=== PATIENT | female | born 1940 | race Caucasian/White ===

== ENCOUNTER 2016-02-19 09:51 | Inpatient (IN) | payer OTHER ==
[~2016-02-19] VITALS: Ht 160 cm; Wt 45.8 kg
[~2016-02-19 09:51] MED LIST: ASPIRIN81 M4 PO; ATORVASTATIN CA10 M1 PO; BENTYL10 M1 PO; CALCIUM600 M2 PO; CENTRUM SILVER1 EAC3 PO; CIPRO500 M1 PO; FLAGYL500 MG PO; VITAMIN D2000 UNI1 PO; ZESTRIL40 M1 PO
--- NOTE | 2016-02-19 10:10 | ED GI/GU/ABDOMINAL COMPLAINT ---
History of Present Illness General Chief Complaint: Abdominal Pain/Flank Pain Stated Complaint: ABDOM PAIN Source: patient, family, old records Exam Limitations: no limitations Vital Signs & Intake/Output Vital Signs & Intake/Output Vital Signs Date Time Temp Pulse Resp B/P Pulse O2 O2 Flow FiO2 Ox Delivery Rate 02/19 0844 130/74 02/19 0710 97.6 73 18 138/74 91 Room Air 02/19 0317 162/82 02/19 0031 98.1 73 18 172/80 97 Nasal 2.0L Cannula 02/19 0000 Nasal 1.0L Cannula 02/18 2044 98.3 81 18 140/60 90 02/18 1706 100.5 90 16 186/79 92 Room Air 02/18 1642 98.7 80 18 158/69 92 02/18 1423 97.3 88 157/71 96 02/18 1237 107 18 130/60 ED Intake and Output 02/19 0000 02/18 1200 Intake Total 850 1400 Output Total 350 Balance 500 1400 Intake, IV 300 1400 Intake, Oral 0 Intake, Other 550 Output, 350 Gastric Drainage Patient 101 lb 99 lb 15.99 oz Weight Allergies Coded Allergies: No Known Allergies (11/18/15) Reconcile Medications Aspirin (Aspirin*) 81 MG TAB.CHEW 1 TAB PO DAILY HEART HEALTH (Reported) Atorvastatin Calcium 10 MG TABLET 1 TAB PO DAILY CHOLESTEROL (Reported) Calcium Carbonate (Calcium) 600 MG TABLET 1 TAB PO DAILY SUPPLEMENT (Reported ) Cholecalciferol (Vitamin D3) (Vitamin D) 2,000 UNIT TABLET 1 TAB PO DAILY SUPPLEMENT (Reported) Dicyclomine Hydrochloride (Bentyl) 10 MG CAPSULE 1 CAP PO TID pain Lisinopril (Zestril) 40 MG TABLET 1 TAB PO DAILY HEART (Reported) Multivit-Min/FA/Lycopen/Lutein (Centrum Silver Tablet) 1 EACH TABLET 1 TAB PO DAILY SUPPLEMENT (Reported) Triage Note: PT C/O ABDOMINAL PAIN WITH N/V X 5 DAYS. PT SEEN HERE ON 02/[address] SCAN WAS DONE. PT STATES UNABLE TO KEEP ANY FOOD DOWN BUT HAS KEPT WATER DOWN. STATES VOMITED THIS AM WAS ALL BILE Triage Nurses Notes Reviewed? yes ? N Is pt currently ? No Onset: Gradual Duration: week(s): (1-2) Timing: recent history Quality/Severity: fullness, severe Severity Numbers: 10 Location: generalized abdomen Radiation: no radiation Activities at Onset: none Prior Abdominal Problems: none No Modifying Factors: none Associated Symptoms: abdominal pain, nausea/vomiting, DISTENTION HPI: 75 year old female who presents to the ER who presents to the ER with progressive abdominal pain and distention for the past 1 week. She was seen here on February 13 and diagnosed with a small bowel obstruction but was abble to eat and having normal bowel movement at the time. In the last 3 days she has not had a bowel movement. She has also been unable to eat for the past 2 days. She admits to feeling weak. She reports passing a small amount of gas this morning. She vomited a moderate amount yesterday evening. She was due to see GI as an outpatient but cannot get an appointment until March 10. Past History Travel History Traveled to [place] past 21 day No Medical History Any Pertinent Medical History? see below for history Neurological: NONE EENT: NONE Cardiovascular: hypertension, hyperlipidemia Respiratory: NONE Gastrointestinal: diverticulitis Hepatic: NONE Renal: NONE Musculoskeletal: NONE Psychiatric: NONE Endocrine: NONE Blood Disorders: NONE Cancer(s): NONE Surgical History Surgical History: appendectomy, cholecystectomy, hysterectomy Psychosocial History What is your primary language Cypriot Tobacco Use: Quit >30 days ago ETOH Use: denies use Illicit Drug Use: denies illicit drug use Family History Hx Contributory? No Review of Systems Review of Systems Constitutional: Reports: weakness. Denies: chills, fever, malaise. EENTM: Reports: no symptoms. Respiratory: Denies: cough, short of breath, sputum production. Cardiovascular: Denies: chest pain, palpitations. GI: Reports: abdominal pain, bloating, constipation, nausea, vomiting. Genitourinary: Reports: no symptoms. Musculoskeletal: Reports: no symptoms. Skin: Reports: no symptoms. Neurological/Psychological: Reports: anxiety. Hematologic/Endocrine: Denies: bruising, bleeding, polyuria, polydipsia. Immunologic/Allergic: Denies: splenectomy. All Other Systems: Reviewed and Negative Physical Exam Physical Exam General Appearance: alert, awake, anxious, mild distress, thin Head: atraumatic, normal appearance Eyes: Bilateral: normal appearance, PERRL, EOMI. Ears, Nose, Throat, Mouth: hearing grossly normal, moist mucous membrane Neck: normal inspection, supple, full range of motion Respiratory: normal breath sounds, chest non-tender, no respiratory distress Cardiovascular: regular rate/rhythm Peripheral Pulses: 2+ radial (R), 2+ radial (L) Gastrointestinal: distended, tympanic Back: normal inspection, normal range of motion Extremities: normal range of motion Neurologic/Psych: no motor/sensory deficits, awake, alert, oriented x 3 Skin: intact, normal color, warm/dry Core Measures ACS in differential dx? No Severe Sepsis Present: No Septic Shock Present: No Progress Differential Diagnosis: diverticulitis, ischemic bowel, perforated viscous, SBO, ILEUS, MASS Plan of Care: Orders Procedure Date/time Status MAGNESIUM 02/20 599 Active CBC WITHOUT DIFFERENTIAL 02/20 599 Active BASIC ELECTROLYTES PLUS BUN&CR 02/20 599 Active CBC WITHOUT DIFFERENTIAL 02/19 599 Complete BASIC ELECTROLYTES PLUS BUN&CR 02/19 599 Complete MISSING MEDICATION FORM 02/19 UNK Active Nothing by Mouth 02/18 D Active MISSING MEDICATION FORM 02/18 204 Active Teach/Educate 02/18 1728 Active Nutritional Intake, Monitor 02/18 1728 Active Isolation 02/18 1728 Active Patient Care Conference 02/18 1728 Active TRC EVALUATION (GEN) 02/18 1255 Active Pathway - chart 02/18 1255 Active Patient Data 02/18 1255 Active Code Status 02/18 1255 Active Admit to inpatient 02/18 1221 Active Vital Signs 02/18 1221 Active Code Status 02/18 1221 Complete NGT 02/18 1132 Active VTE Mechanical Prophylaxis 02/18 UNK Active Vital Signs 02/18 UNK Complete Intake & Output 02/18 UNK Active Activity/Ambulation 02/18 UNK Active Current Medications Sig/Cesar Start time Last Medication Dose Stop Time Status Admin Ondansetron HCl 4 MG Q6P PRN 02/18 1300 AC (Zofran) Phenol 2 SPRAY Q2P PRN 02/18 1300 AC (Chloraseptic (Phenaseptic) [place]) Laboratory Tests 02/20/16 0635: Anion Gap 12, Estimated GFR > 60, BUN/Creatinine Ratio 22.0, CBC w Diff NO MAN DIFF REQ, RBC 3.90 L, MCV 92.6, MCH 31.3 H, RDW 14.3, MPV 7.5, Gran % 78.1 H, Lymphocytes % 11.9 L, Monocytes % 8.7, Eosinophils % 0.9, Basophils % 0.4, Absolute Granulocytes 10.9 H, Absolute Lymphocytes 1.7, Absolute Monocytes 1.2 H, Absolute Eosinophils 0.1, Absolute Basophils 0.1, PUBS MCHC 33.8 02/19/16 1421: Lactic Acid 1.0 LABS, URINALYSIS, CT SCAN ORDERED. IV NS ORDERED. CT CONSISTENT WITH SBO. D/W DR REYEZ. SURGICAL PA PAGED. IV MORPHINE ORDERED FOR PAIN. NGT PLACED. 500 CC BILIOUS MATERAL DRAINED. PATIENT ADMITTED TO THE SURGICAL SERVICE. (NICOLETTE LEE,SOCORRO) Diagnostic Imaging: Viewed by Me: Radiology Read, CT Scan. Discussed w/RAD: Radiology Read, CT Scan. Radiology Impression: EXAM TYPE: CAT - CT ABD & PELVIS W IV CONTRAST EXAMINATION : CT ABDOMEN AND PELVIS WITH CONTRAST CLINICAL INFORMATION: Worsening abdominal distention and vomiting. Evaluate for obstruction. COMPARISON: 02/14/2016 TECHNIQUE: Multidetector volumetric imaging was performed of the abdomen and pelvis before and after the IV administration of 95 mL of Optiray 320 intravenous contrast. Sagittal and coronal reformatted images were obtained on the technologist's workstation. DLP: 250 mGy-cm. FINDINGS: LUNG BASES: The visualized lung bases are unremarkable. LIVER, GALLBLADDER, AND BILIARY TREE: The liver is normal in size, shape, and attenuation. No focal hepatic lesion or biliary ductal dilatation is present. The gallbladder is unremarkable with no evidence of radiopaque gallstones, gallbladder wall thickening, or obvious pericholecystic inflammatory changes. PANCREAS: Unremarkable. SPLEEN: Unremarkable. ADRENAL GLANDS: Unremarkable. KIDNEYS AND URETERS: The kidneys are normal in size, shape, and attenuation. No hydronephrosis, hydroureter, or calculi seen. No perinephric stranding. BLADDER: Unremarkable. GASTROINTESTINAL TRACT: The stomach is distended. There is increased fluid-filled dilatation of the small bowel, diffusely throughout the abdomen. This is significantly increased from the previous study. A transition point is noted in the right lower quadrant in the area of image 49/86 axial and image 70/109 sagittal. There is scattered stool seen in the colon which is otherwise fairly decompressed. There is colonic diverticulosis without evidence of diverticulitis. No free air or free fluid. ABDOMINAL WALL: No significant hernia is appreciated. LYMPH NODES : Normal. VASCULAR: Extensive atherosclerotic calcifications. Circumaortic left renal vein. PELVIC VISCERA: The uterus is not seen. No adnexal mass. OSSEOUS STRUCTURES: No acute or suspicious osseous abnormalities. Mild degenerative changes of the spine. IMPRESSION: Progressive fluid-filled dilatation of the small bowel when compared to the prior study, consistent with worsening small bowel obstruction. A transition point is seen in the right lower quadrant as detailed above. CXR Impression: EXAM TYPE: RAD - XRY-PORTABLE CHEST XRAY EXAMINATION: XR PORTABLE CHEST CLINICAL INFORMATION: NG tube placement. COMPARISON: CT of abdomen and pelvis from 02/19/2016. CXR from 02/19/2009. TECHNIQUE: Portable view of the chest was obtained. FINDINGS: Lungs are chronically hyperexpanded. Cardiac silhouette is normal in size. The NG tube courses below the diaphragm and its tip is in the proximal third of the stomach. The side-port of the tube is at the level of the esophagogastric junction. Dilated small bowel is seen within the upper abdomen. No pneumoperitoneum. IMPRESSION: 1. The tip of the NG tube is within the proximal third of the stomach. 2. Small bowel obstruction without pneumoperitoneum. DICTATED BY: CHUNG ROLLINS MD Initial ED EKG: NSR, RBBB Departure Departure Time of Disposition: 1221 Disposition: STILL A PATIENT Condition: Stable Clinical Impression Primary Impression: SBO (small bowel obstruction) Secondary Impressions: Hyponatremia Referrals: LEONIDAS MARTIN,MARIE [place] (PCP/Family) Departure Forms: Customer Survey General Discharge Information Admission Note Spoke With: DEREJE LEE,SOCO N. Documentation of Exam: Documentation of any treatments & extenuating circumstances including Concerns Regarding Discharge (functional status, medication knowledge or non-compliance, living conditions, etc.) that warrant an admission rather than observation: [NGT , NPO, IV FLUIDS, ABDOMINAL EXAMINATIONS, PAIN CONTROL, MONITOR ELECTROLYTES, POSSIBLE SURGICAL INTERVENTION]
--- NOTE | 2016-02-19 10:21 | NUR ---
LAV,SST,BLUE,SYED,AND PINK TOP SENT AT THIS TIME.
[2016-02-19 10:27] LABS: ABSOLUTE BASOPHIL COUNT 0.1 /CUMM (0.0-0.2); ABSOLUTE EOSINOPHIL COUNT 0 /CUMM (0.0-0.7); ABSOLUTE LYMPH COUNT 1.5 /CUMM (1.2-3.4); ABSOLUTE MONOCYTE COUNT 0.8 /CUMM (0.10-0.60); BASOPHIL % 0.4 % (0.0-2.0); EOSINOPHIL % 0.1 % (0-5); HEMATOCRIT 40.7 % (37-47); MEAN CORPUSCULAR HGB 30.7 PG (27.0-31.0); MEAN CORPUSCULAR HGB CONC 33.6 G/DL (33.0-37.0); MEAN CORPUSCULAR VOLUME 91.4 FL (81.0-99.0); MEAN PLATELET VOLUME 6.9 FL (7.4-10.4); PLATELET COUNT 523 /CUMM (130-400); RBC DISTRIBUTION WIDTH 14.1 % (11.5-14.5); RED BLOOD CELL CT 4.46 /CUMM (4.20-5.40); WHITE BLOOD CELL COUNT 18.4 /CUMM (4.8-10.8)
--- NOTE | 2016-02-19 10:37 | NUR ---
PT C/O ABDOMINAL PAIN WITH N/V X 5 DAYS. PT SEEN HERE ON 02/[address] SCAN WAS DONE. PT STATES UNABLE TO KEEP ANY FOOD DOWN BUT HAS KEPT WATER DOWN. STATES VOMITED THIS AM WAS ALL BILE
--- NOTE | 2016-02-19 10:38 | NUR ---
EXAMINED BY DR. WILL. LABS DRAWN AND IV STARTED.
[2016-02-19 10:45] LABS: PT 13.1 SEC (9.4-12.5); PTT 29 SEC (25-37)
--- NOTE | 2016-02-19 11:00 | NUR ---
TO CT SCAN.
--- NOTE | 2016-02-19 11:30 | NUR ---
RETURNED FROM CT SCAN.
--- NOTE | 2016-02-19 11:43 | CT SCAN REPORT ---
EXAMINATION: CT ABDOMEN AND PELVIS WITH CONTRAST CLINICAL INFORMATION: Worsening abdominal distention and vomiting. Evaluate for obstruction. COMPARISON: 02/14/2016 TECHNIQUE: Multidetector volumetric imaging was performed of the abdomen and pelvis before and after the IV administration of 95 mL of Optiray 320 intravenous contrast. Sagittal and coronal reformatted images were obtained on the technologist's workstation. DLP: 250 mGy-cm. FINDINGS: LUNG BASES: The visualized lung bases are unremarkable. LIVER, GALLBLADDER, AND BILIARY TREE: The liver is normal in size, shape, and attenuation. No focal hepatic lesion or biliary ductal dilatation is present. The gallbladder is unremarkable with no evidence of radiopaque gallstones, gallbladder wall thickening, or obvious pericholecystic inflammatory changes. PANCREAS: Unremarkable. SPLEEN: Unremarkable. ADRENAL GLANDS: Unremarkable. KIDNEYS AND URETERS: The kidneys are normal in size, shape, and attenuation. No hydronephrosis, hydroureter, or calculi seen. No perinephric stranding. BLADDER: Unremarkable. GASTROINTESTINAL TRACT: The stomach is distended. There is increased fluid-filled dilatation of the small bowel, diffusely throughout the abdomen. This is significantly increased from the previous study. A transition point is noted in the right lower quadrant in the area of image 49/86 axial and image 70/109 sagittal. There is scattered stool seen in the colon which is otherwise fairly decompressed. There is colonic diverticulosis without evidence of diverticulitis. No free air or free fluid. ABDOMINAL WALL: No significant hernia is appreciated. LYMPH NODES: Normal. VASCULAR: Extensive atherosclerotic calcifications. Circumaortic left renal vein. PELVIC VISCERA: The uterus is not seen. No adnexal mass. OSSEOUS STRUCTURES: No acute or suspicious osseous abnormalities. Mild degenerative changes of the spine. IMPRESSION: Progressive fluid-filled dilatation of the small bowel when compared to the prior study, consistent with worsening small bowel obstruction. A transition point is seen in the right lower quadrant as detailed above.
--- NOTE | 2016-02-19 12:26 | History & Physical Pre-Op ---
General Information and HPI History of Present Illness: cc: Abdominal pain HPI: She is back to the ER 5 days later with abdominal pain this time it's a little more persistent not really focal in general periumbilical doesn't radiate no bleeding per rectum last time it was more the left lower quadrant this time she feels a lot more nauseous and bloated but hasn't actually vomited discomfort is relieved with IV analgesics and it's not worse on movement, no fevers or sweats she isn't passing gas last time was yesterday last bowel movement was yesterday. The PFSH and ROS were reviewed and have not changed significantly since that ENMT done here in the ER 5 days ago on February 13, unless stated, updates and corrections to the history include she has not had a cholecystectomy, there is a family history of stroke no GI cancer Allergies/Medications Allergies: Coded Allergies: No Known Allergies (11/18/15) Home Med list Aspirin (Aspirin*) 81 MG TAB.CHEW 1 TAB PO DAILY HEART HEALTH (Reported) Atorvastatin Calcium 10 MG TABLET 1 TAB PO DAILY CHOLESTEROL (Reported) Calcium Carbonate (Calcium) 600 MG TABLET 1 TAB PO DAILY SUPPLEMENT (Reported ) Cholecalciferol (Vitamin D3) (Vitamin D) 2,000 UNIT TABLET 1 TAB PO DAILY SUPPLEMENT (Reported) Dicyclomine Hydrochloride (Bentyl) 10 MG CAPSULE 1 CAP PO TID pain Lisinopril (Zestril) 40 MG TABLET 1 TAB PO DAILY HEART (Reported) Multivit-Min/FA/Lycopen/Lutein (Centrum Silver Tablet) 1 EACH TABLET 1 TAB PO DAILY SUPPLEMENT (Reported) Past History Medical History Neurological: NONE EENT: NONE Cardiovascular: hypertension, hyperlipidemia Respiratory: NONE Gastrointestinal: diverticulitis Hepatic: NONE Renal: NONE Musculoskeletal: NONE Psychiatric: NONE Endocrine: NONE Blood Disorders: NONE Cancer(s): NONE Surgical History Pertinent Surgical History: appendectomy, cholecystectomy, hysterectomy Past Family/Social History Psychosocial History ETOH Use: denies use Illicit Drug Use: denies illicit drug use Review of Systems Review of Systems: Done 5 days ago no changes unless stated above Exam & Diagnostic Data Last 24 Hrs of Vital Signs/I&O I reviewed Vital Signs Date Time Temp Pulse Resp B/P Pulse O2 O2 Flow FiO2 Ox Delivery Rate 02/18 0957 98.9 97 20 117/73 96 Room Air I reviewed Intake & Output 02/18 1600 02/18 0800 02/18 0000 Intake Total Output Total Balance Patient 99 lb 15.99 oz Weight Physical Exam: Constitutional: pleasant, no acute distress, conversant Eyes: sclera anicteric ENMT: ears and nose atraumatic, moist mucous membranes, good dentition, no lip lesions Neck: Supple, trachea is midline, no cervical or supraclavicular adenopathy and no palpable thyromegaly Cardiovascular: S1, S2, no murmurs, no peripheral edema Respiratory: clear to auscultation with normal respiratory effort and no intercostal retractions GI: abdomen soft, still nontender, but distinctly distended, no palpable hepatosplenomegaly Extremities / lymphatics: symmetrically warm, free range of motion no peripheral edema, no cervical, supraclavicular, axillary, or inguinal adenopathy Musculoskeletal: gait and station not evaluated, no digital cyanosis, good muscle strength and tone no atrophy, motor grossly 5 out of 5 throughout Skin: no jaundice, no rashes warm, nondiaphoretic, no areas of erythema or induration Psychiatric: mood and affect are appropriate and alert and oriented to person place and time Last 24 Hrs of Labs/Ye: I reviewed Laboratory Tests 02/19/16 1017: Anion Gap 15, Estimated GFR > 60, BUN/Creatinine Ratio 30.0 H, Glucose 122 H, Lactic Acid 1.4, Calcium 9.9, Total Bilirubin 0.7, AST 27, ALT 30, Alkaline Phosphatase 67, Troponin I < 0.01, Total Protein 7.3, Albumin 4.1, Globulin 3.2, Albumin/Globulin Ratio 1.3, Lipase 67, PT 13.1 H, INR 1.25 H, APTT 29, CBC w Diff MAN DIFF ORDERED, RBC 4.46, MCV 91.4, MCH 30.7, RDW 14.1, MPV 6.9 L, Gran % 87.0 H, Lymphocytes % 8.2 L, Monocytes % 4.3, Eosinophils % 0.1, Basophils % 0.4, Absolute Granulocytes 16.0 H, Absolute Lymphocytes 1.5, Absolute Monocytes 0.8 H, Absolute Eosinophils 0, Absolute Basophils 0.1, Platelet Estimate INCREASED, Normocytic RBCs VERIFIED, Normochromic RBCs VERIFIED, PUBS MCHC 33.[address] scan of the abdomen on PACS myself from today in the ER and compared it to the one 5 days ago on the . In the interval the degree of small bowel dilatation has increased, no obvious masses down in the pelvis. Assessment/Plan Assessment/Plan: Impression is small bowel obstruction presumably from adhesions from prior surgeries, often exacerbated by an unusual meal high in fiber or chewy food, or even straining, both of which she denies again. I went over her films with the radiologist including those from years ago to try to make sense Y she's had leukocytosis and thrombocytosis and abdominal pain since October, now more obviously a small bowel obstruction, on the CT scans it's not clear there is no definite obvious mass in the low pelvis or free fluid there are some nonspecific prominent mesenteric nodes in the central mesentery, she was due for colonoscopy this month until this episode of pain brought her to the ER again. In the meantime will treat in routine nonoperative fashion with bowel rest, NG tube for decompression, maintenance IV fluids and for the GI losses, monitor uo, electrolytes, vital signs, serial exams, labs, abdominal x-rays. Presently there are no peritoneal signs, if situation plateaus or worsens, especially if abdominal pain worsens in next 6-12 hours, might need urgent surgical intervention in the interest of bowel viability, but as I explained, most of the time it is not needed. As Ranked By This Provider Problem List: 1. SBO (small bowel obstruction) 2. Leukocytosis 3. Thrombocytosis 4. Abdominal pain
--- NOTE | 2016-02-19 12:38 | NUR ---
NG TUBE INSERTION ATTEMPTED BY THIS NURSE, UNSUCCESSFUL. # 16 NG TUBE INSERTED BY DAR. WILL. DRAINING BLOODY AND GREEN STOMACH CONTENTS.
--- NOTE | 2016-02-19 12:47 | NUR ---
PORTABLE ABDOMINAL XRAY DONE. SINUS RHYTHM ON MONITOR.
--- NOTE | 2016-02-19 12:48 | Admission Core Measures ---
Admission Lab Results I reviewed the following labs: Laboratory Tests 02/18 1017 Chemistry Sodium (137 - 145 mmol/L) 130 L Potassium (3.5 - 5.1 mmol/L) 3.9 Chloride (98 - 107 mmol/L) 85 L Carbon Dioxide (22 - 30 mmol/L) 29 Anion Gap (5 - 16) 15 BUN (7 - 17 mg/dL) 18 H Creatinine (0.5 - 1.0 mg/dL) 0.6 Estimated GFR (>60 ml/min) > 60 BUN/Creatinine Ratio (7 - 25 %) 30.0 H Glucose (65 - 99 mg/dL) 122 H Lactic Acid (0.7 - 2.1 mmol/L) 1.4 Calcium (8.4 - 10.2 mg/dL) 9.9 Total Bilirubin (0.2 - 1.3 mg/dL) 0.7 AST (14 - 36 U/L) 27 ALT (9 - 52 U/L) 30 Alkaline Phosphatase (<127 U/L) 67 Troponin I (< 0.11 ng/ml) < 0.01 Total Protein (6.3 - 8.2 g/dL) 7.3 Albumin (3.5 - 5.0 g/dL) 4.1 Globulin (1.9 - 4.2 gm/dL) 3.2 Albumin/Globulin Ratio (1.1 - 2.2 %) 1.3 Lipase (23 - 300 U/L) 67 Coagulation PT (9.4 - 12.5 SEC) 13.1 H INR (0.90 - 1.19) 1.25 H APTT (25 - 37 SEC) 29 Hematology CBC w Diff MAN DIFF ORDERED WBC (4.8 - 10.8 /CUMM) 18.4 H RBC (4.20 - 5.40 /CUMM) 4.46 Hgb (12.0 - 16.0 G/DL) 13.7 Hct (37 - 47 %) 40.7 MCV (81.0 - 99.0 FL) 91.4 MCH (27.0 - 31.0 PG) 30.7 RDW (11.5 - 14.5 %) 14.1 Plt Count (130 - 400 /CUMM) 523 H MPV (7.4 - 10.4 FL) 6.9 L Gran % (42.2 - 75.2 %) 87.0 H Lymphocytes % (20.5 - 51.1 %) 8.2 L Monocytes % (1.7 - 9.3 %) 4.3 Eosinophils % (0 - 5 %) 0.1 Basophils % (0.0 - 2.0 %) 0.4 Absolute Granulocytes (1.4 - 6.5 /CUMM) 16.0 H Absolute Lymphocytes (1.2 - 3.4 /CUMM) 1.5 Absolute Monocytes (0.10 - 0.60 /CUMM) 0.8 H Absolute Eosinophils (0.0 - 0.7 /CUMM) 0 Absolute Basophils (0.0 - 0.2 /CUMM) 0.1 Platelet Estimate (ADEQUATE) INCREASED Normocytic RBCs VERIFIED Normochromic RBCs VERIFIED PUBS MCHC (33.0 - 37.0 G/DL) 33.6 Acute Coronary Syndrome Inclusion Criteria ACS Diagnosis No Inpatient Core Measures LDL Reminder: If No, please order W/I first 24hr of stay Congestive Heart Failure Inclusion Criteria CHF Diagnosis No Cerebrovascular accident Inclusion Criteria CVA/TIA Diagnosis No Inpatient Core Measures Bedside Swallow Eval Reminder: If BSE failed, place ST order Antithrombotic Reminder: Order Antithrombotic Medication by end of day 2 Antithrombotic Reminder: Document Reason Antithrombotic Not ordered by end of day 2 AFIB/Flutter Reminder: If Present, add to problem list AFIB/Flutter Reminder: Order Anticoag Medication for pts with AFIB/Flutter Atherosclerosis Reminder: If Present, add to problem list LDL Reminder: If No, please order W/I first 24hr of stay PT Order Reminder: If No, please order Venous thromboembolism Inpatient Core Measures VTE Risk Factors: Age > 40 VTE Prophylaxis Ordered Inpt [facility] VTE prophylaxis d/t No contraindications No VTE Pharm Prophylaxis d/t No contraindications Inclusion Criteria - Per Current guidelines, there needs to be overlap - treatment for the first 5 days of Warfarin therapy. - Parenteral Anticoagulation (IV or SC) needs to be - given along with Warfarin therapy. VTE Diagnosis No VTE Type NONE VTE Confirmed by (Test) NONE Problem List As ranked by this Provider includes Assessment & Plan 1. SBO (small bowel obstruction) HOME MEDS Home Med List Aspirin (Aspirin*) 81 MG TAB.CHEW 1 TAB PO DAILY HEART HEALTH (Reported) Atorvastatin Calcium 10 MG TABLET 1 TAB PO DAILY CHOLESTEROL (Reported) Calcium Carbonate (Calcium) 600 MG TABLET 1 TAB PO DAILY SUPPLEMENT (Reported ) Cholecalciferol (Vitamin D3) (Vitamin D) 2,000 UNIT TABLET 1 TAB PO DAILY SUPPLEMENT (Reported) Dicyclomine Hydrochloride (Bentyl) 10 MG CAPSULE 1 CAP PO TID pain Lisinopril (Zestril) 40 MG TABLET 1 TAB PO DAILY HEART (Reported) Multivit-Min/FA/Lycopen/Lutein (Centrum Silver Tablet) 1 EACH TABLET 1 TAB PO DAILY SUPPLEMENT (Reported)
--- NOTE | 2016-02-19 13:00 | NUR ---
CONTACT PT'S SISTER FOR ANY QUESTIONS/NEEDS - BRIAN CELL = [phone] HOME = [phone] BRIAN'S RICH = [phone] (CELL)
--- NOTE | 2016-02-19 13:16 | RADIOLOGY REPORT ---
EXAMINATION: XR PORTABLE CHEST CLINICAL INFORMATION: NG tube placement. COMPARISON: CT of abdomen and pelvis from 02/19/2016. CXR from 02/19/2009. TECHNIQUE: Portable view of the chest was obtained. FINDINGS: Lungs are chronically hyperexpanded. Cardiac silhouette is normal in size. The NG tube courses below the diaphragm and its tip is in the proximal third of the stomach. The side-port of the tube is at the level of the esophagogastric junction. Dilated small bowel is seen within the upper abdomen. No pneumoperitoneum. IMPRESSION: 1. The tip of the NG tube is within the proximal third of the stomach. 2. Small bowel obstruction without pneumoperitoneum.
--- NOTE | 2016-02-19 14:15 | NUR ---
RESTING, STATES SHE IS HAVING ABDOMINAL CRAMPING, PAIN MEDS OFFERED, REFUSES AT THIS TIME.
--- NOTE | 2016-02-19 14:23 | NUR ---
LACTIC SENT AT THIS TIME.
--- NOTE | 2016-02-19 14:56 | NUR ---
MEDICATED FOR PAIN.
[2016-02-19 16:42] VITALS: BP 158/69
--- NOTE | 2016-02-19 16:59 | NUR ---
PT MOVED TO ROOM # 18 AND CONNECTED NGT TO LOW INTERMITTENT SUCTION. PT DENIES NAUSEA OR ABDOMINAL PAIN. ALL V.S.S.
--- NOTE | 2016-02-19 19:13 | NUR ---
PT ASSIGNED BED [id number]
--- NOTE | 2016-02-19 20:01 | NUR ---
PT'S HEALTH CARE PROXY AND POA IS: BRIAN SAVAGE; CELL # [phone]
[2016-02-19 20:44] VITALS: BP 140/60
--- NOTE | 2016-02-20 00:08 | NUR ---
NURSE NOTE: PT BLOOD PRESSURE 172/80, SURGICAL PA MATHEW MADE AWARE. WILL CONTINUTE TO MONITOR AT THIS TIME. PT IS SLEEPING COMFORTABLY AT THIS TIME.
[2016-02-20 00:31] VITALS: BP 172/80
--- NOTE | 2016-02-20 01:02 | NUR ---
NURSE NOTE: (LATE ENTRY) PT ARRIVED TO FLOOR AT 2030, ESCORTED MY POA (FRIEND) AND TRANSPORT. PT AAOX3, IVF, NGT. PT DENIES PAIN AT THIS TIME. PT VITALS ARE STABLE. ASSESSMENT COMPLETED.
[2016-02-20 03:17] VITALS: BP 162/82
[2016-02-20 07:10] VITALS: BP 138/74
[2016-02-20 08:07] LABS: ABSOLUTE BASOPHIL COUNT 0.1 /CUMM (0.0-0.2); ABSOLUTE EOSINOPHIL COUNT 0.1 /CUMM (0.0-0.7); ABSOLUTE GRANULOCYTE CT 10.9 /CUMM (1.4-6.5); ABSOLUTE LYMPH COUNT 1.7 /CUMM (1.2-3.4); ABSOLUTE MONOCYTE COUNT 1.2 /CUMM (0.10-0.60); BASOPHIL % 0.4 % (0.0-2.0); EOSINOPHIL % 0.9 % (0-5); GRANULOCYTE % 78.1 % (42.2-75.2); HEMATOCRIT 36.1 % (37-47); MEAN CORPUSCULAR HGB 31.3 PG (27.0-31.0); MEAN CORPUSCULAR HGB CONC 33.8 G/DL (33.0-37.0); MEAN CORPUSCULAR VOLUME 92.6 FL (81.0-99.0); MEAN PLATELET VOLUME 7.5 FL (7.4-10.4); PLATELET COUNT 418 /CUMM (130-400); RBC DISTRIBUTION WIDTH 14.3 % (11.5-14.5)
--- NOTE | 2016-02-20 10:12 | PN- General Surgery ---
Subjective Subjective: f-up SBO Back from x-ray she says she feels better no significant abdominal pain, she is passing gas no nausea no vomiting ambulating. Objective Vital Signs and I&Os I reviewed Vital Signs Date Time Temp Pulse Resp B/P Pulse O2 O2 Flow FiO2 Ox Delivery Rate 02/19 0844 130/74 02/19 0710 97.6 73 18 138/74 91 Room Air 02/19 0317 162/82 02/19 0031 98.1 73 18 172/80 97 Nasal 2.0L Cannula 02/19 0000 Nasal 1.0L Cannula 02/18 2044 98.3 81 18 140/60 90 02/18 1706 100.5 90 16 186/79 92 Room Air 02/18 1642 98.7 80 18 158/69 92 02/18 1423 97.3 88 157/71 96 02/18 1237 107 18 130/60 I reviewed Intake & Output 02/19 1600 02/19 0800 02/19 0000 02/18 1600 02/18 0800 02/18 0000 Intake Total 144 463 9217 Output Total 580 350 Balance 20 850 1050 Intake, IV 795 845 3499 Intake, Oral 0 0 Intake, Other 550 Output, 80 350 Gastric Drainage Output, Urine 500 Patient 101 lb 99 lb 15.99 oz Weight Physical Exam: Constitutional: no acute distress no pain Eyes: sclera anicteric ENMT: moist mucous membranes Cardiovascular: S1-S2 no murmurs no peripheral edema Respiratory: clear to auscultation with normal respiratory effort and no intercostal retractions GI: abdomen soft nontender at all, but distinctly distended and firm still Extremities / lymphatics: free range of motion no peripheral edema Skin: no jaundice no rashes warm, nondiaphoretic Psychiatric: mood and affect are appropriate and alert and oriented to person place and time Current Medications: I reviewed Current Medications Sig/Cesar Start time Last Medication Dose Route Stop Time Status Admin Heparin Sodium 5,000 UNIT Q8 02/18 1400 AC 02/19 (Porcine) SC 0615 Lisinopril 40 MG DAILY 02/19 1000 AC 02/19 PO 0844 Morphine Sulfate 0 .STK-MED ONE 02/18 2018 DC .ROUTE Morphine Sulfate 0 .STK-MED ONE 02/18 1450 DC .ROUTE Morphine Sulfate 2 MG Q3P PRN 02/18 1300 AC 02/18 IV 2020 Morphine Sulfate 2 MG ONCE ONE 02/18 1145 DC 02/18 IV 02/18 1146 1138 Morphine Sulfate 0 .STK-MED ONE 02/18 1136 DC .ROUTE Ondansetron HCl 4 MG Q6P PRN 02/18 1300 AC IV Pantoprazole Sodium 0 .STK-MED ONE 02/18 1329 DC IV Pantoprazole Sodium 40 MG DAILY 02/18 1253 AC 02/19 IV 0844 Phenol 2 SPRAY Q2P PRN 02/18 1300 AC EXT Potassium Chloride 10 MEQ Q1H 02/19 1015 AC IV 02/19 1116 Potassium Chloride 20 MEQ Q13H 02/18 2115 AC 02/19 Dextrose/Sodium 1,000 ML IV 0843 Chloride Potassium Chloride 20 MEQ .[id number] 02/18 1300 DC 02/18 Dextrose/Sodium 1,000 ML IV 1415 Chloride Sodium Chloride 1,000 ML ONCE ONE 02/18 1345 DC 02/18 IV 02/18 2144 1602 Sodium Chloride 1,000 ML BOLUS ONE 02/18 1015 DC 02/18 IV 02/18 1114 1037 Results Last 48 Hours of Labs: I reviewed Laboratory Tests 02/19 02/18 0635 1421 Chemistry Sodium (137 - 145 mmol/L) 134 L Potassium (3.5 - 5.1 mmol/L) 3.5 Chloride (98 - 107 mmol/L) 95 L Carbon Dioxide (22 - 30 mmol/L) 27 Anion Gap (5 - 16) 12 BUN (7 - 17 mg/dL) 11 Creatinine (0.5 - 1.0 mg/dL) 0.5 Estimated GFR (>60 ml/min) > 60 BUN/Creatinine Ratio (7 - 25 %) 22.0 Lactic Acid (0.7 - 2.1 mmol/L) 1.0 Hematology CBC w Diff NO MAN DIFF REQ WBC (4.8 - 10.8 /CUMM) 14.0 H RBC (4.20 - 5.40 /CUMM) 3.90 L Hgb (12.0 - 16.0 G/DL) 12.2 Hct (37 - 47 %) 36.1 L MCV (81.0 - 99.0 FL) 92.6 MCH (27.0 - 31.0 PG) 31.3 H RDW (11.5 - 14.5 %) 14.3 Plt Count (130 - 400 /CUMM) 418 H MPV (7.4 - 10.4 FL) 7.5 Gran % (42.2 - 75.2 %) 78.1 H Lymphocytes % (20.5 - 51.1 %) 11.9 L Monocytes % (1.7 - 9.3 %) 8.7 Eosinophils % (0 - 5 %) 0.9 Basophils % (0.0 - 2.0 %) 0.4 Absolute Granulocytes (1.4 - 6.5 /CUMM) 10.9 H Absolute Lymphocytes (1.2 - 3.4 /CUMM) 1.7 Absolute Monocytes (0.10 - 0.60 /CUMM) 1.2 H Absolute Eosinophils (0.0 - 0.7 /CUMM) 0.1 Absolute Basophils (0.0 - 0.2 /CUMM) 0.1 PUBS MCHC (33.0 - 37.0 G/DL) 33.8 02/18 1017 Chemistry Sodium (137 - 145 mmol/L) 130 L Potassium (3.5 - 5.1 mmol/L) 3.9 Chloride (98 - 107 mmol/L) 85 L Carbon Dioxide (22 - 30 mmol/L) 29 Anion Gap (5 - 16) 15 BUN (7 - 17 mg/dL) 18 H Creatinine (0.5 - 1.0 mg/dL) 0.6 Estimated GFR (>60 ml/min) > 60 BUN/Creatinine Ratio (7 - 25 %) 30.0 H Glucose (65 - 99 mg/dL) 122 H Lactic Acid (0.7 - 2.1 mmol/L) 1.4 Calcium (8.4 - 10.2 mg/dL) 9.9 Total Bilirubin (0.2 - 1.3 mg/dL) 0.7 AST (14 - 36 U/L) 27 ALT (9 - 52 U/L) 30 Alkaline Phosphatase (<127 U/L) 67 Troponin I (< 0.11 ng/ml) < 0.01 Total Protein (6.3 - 8.2 g/dL) 7.3 Albumin (3.5 - 5.0 g/dL) 4.1 Globulin (1.9 - 4.2 gm/dL) 3.2 Albumin/Globulin Ratio (1.1 - 2.2 %) 1.3 Lipase (23 - 300 U/L) 67 Coagulation PT (9.4 - 12.5 SEC) 13.1 H INR (0.90 - 1.19) 1.25 H APTT (25 - 37 SEC) 29 Hematology CBC w Diff MAN DIFF ORDERED WBC (4.8 - 10.8 /CUMM) 18.4 H RBC (4.20 - 5.40 /CUMM) 4.46 Hgb (12.0 - 16.0 G/DL) 13.7 Hct (37 - 47 %) 40.7 MCV (81.0 - 99.0 FL) 91.4 MCH (27.0 - 31.0 PG) 30.7 RDW (11.5 - 14.5 %) 14.1 Plt Count (130 - 400 /CUMM) 523 H MPV (7.4 - 10.4 FL) 6.9 L Gran % (42.2 - 75.2 %) 87.0 H Lymphocytes % (20.5 - 51.1 %) 8.2 L Monocytes % (1.7 - 9.3 %) 4.3 Eosinophils % (0 - 5 %) 0.1 Basophils % (0.0 - 2.0 %) 0.4 Absolute Granulocytes (1.4 - 6.5 /CUMM) 16.0 H Absolute Lymphocytes (1.2 - 3.4 /CUMM) 1.5 Absolute Monocytes (0.10 - 0.60 /CUMM) 0.8 H Absolute Eosinophils (0.0 - 0.7 /CUMM) 0 Absolute Basophils (0.0 - 0.2 /CUMM) 0.1 Platelet Estimate (ADEQUATE) INCREASED Normocytic RBCs VERIFIED Normochromic RBCs VERIFIED PUBS MCHC (33.0 - 37.0 G/DL) 33.6 I reviewed today's multiview on PACS myself compared to yesterday's corporation officer, there is a little more scattered gas in the colon but mostly it still distended small bowel Assessment/Plan Assessment/Plan Impression is small bowel obstruction I reviewed all of her films with the radiologist it's not clear what's causing it, we'll advance the NG tube little more hopefully we can decompress her, this usually works I explained to her but if she is not much better overnight then we will have to take her to the OR at this point for a laparotomy because of the distention and the problem is deep in the pelvis if she wasn't so distended perhaps could try a laparoscopy. Core Measures/Miscellaneous Venous Thromboembolism VTE Risk Factors: Acute medical illness VTE Contraindications: No Contraindications VTE Prophylaxis Ordered Inpt Mech & Pharm VTE Diagnosis: No VTE Type: NONE VTE Confirmed by (Test): NONE Beta Jonna Is Beta Jonna a Home Med? No Antibiotics Is Patient on Antibiotics? No
--- NOTE | 2016-02-20 10:15 | PN- General Surgery ---
Subjective Subjective: No acute events overnight. Pt reports improvement in her symptoms overall. she denies pain or nausea. Nasogastric tube remains in place with minimal bilious output. she states that she is passing flatus. No bowel movement as of yet. She is voiding well. Objective Vital Signs and I&Os Vital Signs Date Time Temp Pulse Resp B/P Pulse O2 O2 Flow FiO2 Ox Delivery Rate 02/19 0844 130/74 02/19 0710 97.6 73 18 138/74 91 Room Air 02/19 0317 162/82 02/19 0031 98.1 73 18 172/80 97 Nasal 2.0L Cannula 02/19 0000 Nasal 1.0L Cannula 02/18 2044 98.3 81 18 140/60 90 02/18 1706 100.5 90 16 186/79 92 Room Air 02/18 1642 98.7 80 18 158/69 92 02/18 1423 97.3 88 157/71 96 02/18 1237 107 18 130/60 Intake & Output 02/19 1600 02/19 0800 02/19 0000 02/18 1600 02/18 0800 02/18 0000 Intake Total 793 390 4180 Output Total 580 350 Balance 20 850 1050 Intake, IV 279 876 8162 Intake, Oral 0 0 Intake, Other 550 Output, 80 350 Gastric Drainage Output, Urine 500 Patient 101 lb 99 lb 15.99 oz Weight Physical Exam: Gen.: Patient is awake and alert. No acute distress. Cardiac: Regular Pulmonary: CTA bilaterally Abdomen: Soft, but still moderately distended. Nontender throughout. No BS appreciated on exam. NGT in place. Output 100/12 hrs. Results Last 48 Hours of Labs: Laboratory Tests 02/19 02/18 0635 1421 Chemistry Sodium (137 - 145 mmol/L) 134 L Potassium (3.5 - 5.1 mmol/L) 3.5 Chloride (98 - 107 mmol/L) 95 L Carbon Dioxide (22 - 30 mmol/L) 27 Anion Gap (5 - 16) 12 BUN (7 - 17 mg/dL) 11 Creatinine (0.5 - 1.0 mg/dL) 0.5 Estimated GFR (>60 ml/min) > 60 BUN/Creatinine Ratio (7 - 25 %) 22.0 Lactic Acid (0.7 - 2.1 mmol/L) 1.0 Hematology CBC w Diff NO MAN DIFF REQ WBC (4.8 - 10.8 /CUMM) 14.0 H RBC (4.20 - 5.40 /CUMM) 3.90 L Hgb (12.0 - 16.0 G/DL) 12.2 Hct (37 - 47 %) 36.1 L MCV (81.0 - 99.0 FL) 92.6 MCH (27.0 - 31.0 PG) 31.3 H RDW (11.5 - 14.5 %) 14.3 Plt Count (130 - 400 /CUMM) 418 H MPV (7.4 - 10.4 FL) 7.5 Gran % (42.2 - 75.2 %) 78.1 H Lymphocytes % (20.5 - 51.1 %) 11.9 L Monocytes % (1.7 - 9.3 %) 8.7 Eosinophils % (0 - 5 %) 0.9 Basophils % (0.0 - 2.0 %) 0.4 Absolute Granulocytes (1.4 - 6.5 /CUMM) 10.9 H Absolute Lymphocytes (1.2 - 3.4 /CUMM) 1.7 Absolute Monocytes (0.10 - 0.60 /CUMM) 1.2 H Absolute Eosinophils (0.0 - 0.7 /CUMM) 0.1 Absolute Basophils (0.0 - 0.2 /CUMM) 0.1 PUBS MCHC (33.0 - 37.0 G/DL) 33.8 / 1017 Chemistry Sodium (137 - 145 mmol/L) 130 L Potassium (3.5 - 5.1 mmol/L) 3.9 Chloride (98 - 107 mmol/L) 85 L Carbon Dioxide (22 - 30 mmol/L) 29 Anion Gap (5 - 16) 15 BUN (7 - 17 mg/dL) 18 H Creatinine (0.5 - 1.0 mg/dL) 0.6 Estimated GFR (>60 ml/min) > 60 BUN/Creatinine Ratio (7 - 25 %) 30.0 H Glucose (65 - 99 mg/dL) 122 H Lactic Acid (0.7 - 2.1 mmol/L) 1.4 Calcium (8.4 - 10.2 mg/dL) 9.9 Total Bilirubin (0.2 - 1.3 mg/dL) 0.7 AST (14 - 36 U/L) 27 ALT (9 - 52 U/L) 30 Alkaline Phosphatase (<127 U/L) 67 Troponin I (< 0.11 ng/ml) < 0.01 Total Protein (6.3 - 8.2 g/dL) 7.3 Albumin (3.5 - 5.0 g/dL) 4.1 Globulin (1.9 - 4.2 gm/dL) 3.2 Albumin/Globulin Ratio (1.1 - 2.2 %) 1.3 Lipase (23 - 300 U/L) 67 Coagulation PT (9.4 - 12.5 SEC) 13.1 H INR (0.90 - 1.19) 1.25 H APTT (25 - 37 SEC) 29 Hematology CBC w Diff MAN DIFF ORDERED WBC (4.8 - 10.8 /CUMM) 18.4 H RBC (4.20 - 5.40 /CUMM) 4.46 Hgb (12.0 - 16.0 G/DL) 13.7 Hct (37 - 47 %) 40.7 MCV (81.0 - 99.0 FL) 91.4 MCH (27.0 - 31.0 PG) 30.7 RDW (11.5 - 14.5 %) 14.1 Plt Count (130 - 400 /CUMM) 523 H MPV (7.4 - 10.4 FL) 6.9 L Gran % (42.2 - 75.2 %) 87.0 H Lymphocytes % (20.5 - 51.1 %) 8.2 L Monocytes % (1.7 - 9.3 %) 4.3 Eosinophils % (0 - 5 %) 0.1 Basophils % (0.0 - 2.0 %) 0.4 Absolute Granulocytes (1.4 - 6.5 /CUMM) 16.0 H Absolute Lymphocytes (1.2 - 3.4 /CUMM) 1.5 Absolute Monocytes (0.10 - 0.60 /CUMM) 0.8 H Absolute Eosinophils (0.0 - 0.7 /CUMM) 0 Absolute Basophils (0.0 - 0.2 /CUMM) 0.1 Platelet Estimate (ADEQUATE) INCREASED Normocytic RBCs VERIFIED Normochromic RBCs VERIFIED PUBS MCHC (33.0 - 37.0 G/DL) 33.6 Assessment/Plan Assessment/Plan Patient is a 75-year-old female with a history of hypertension, hyperlipidemia, and several abdominal surgeries, who is now postoperative day #2 with a recurrent small bowel obstruction. She is improving symptomatically with reports of flatus and no nausea or pain. Plan: -Continue nothing by mouth with NG tube decompression for now. There is no medina for removal given patient's recurrent symptoms. -Follow-up multiview x-ray, which is being done now. -Continue IV fluids with potassium. We will also replete potassium. -Leukocytosis is improving, but this is likely somewhat dilutional. Repeat labs in the morning. -Protonix for GI prophylaxis. -Subcutaneous heparin and Alps for DVT prophylaxis. -Will discuss with attending. Update as of 12pm: MV xray of the abdomen revealed persistent sbo. NGT was advanced 4cm to 59. Continue as above. Core Measures/Miscellaneous Venous Thromboembolism VTE Risk Factors: Acute medical illness, Age > 40 VTE Contraindications: No Contraindications VTE Prophylaxis Ordered Inpt Mech & Pharm VTE Diagnosis: No VTE Type: NONE VTE Confirmed by (Test): NONE Beta Jonna Is Beta Jonna a Home Med? No Antibiotics Is Patient on Antibiotics? No
--- NOTE | 2016-02-20 11:10 | RADIOLOGY REPORT ---
EXAMINATION: XR ABDOMEN MULTIPLE VIEWS CLINICAL INDICATION: Follow-up small bowel obstruction. COMPARISON: CT abdomen and pelvis from 02/19/2016 TECHNIQUE: Abdomen, 2 views FINDINGS: The tip of the enteric tube is in the proximal third of the stomach and the side-port of the tube is located at the level of the esophagogastric junction, unchanged compared to 02/19/2016. Again noted is extensive dilatation of small bowel with air-fluid levels, consistent with small bowel obstruction. The dilated small bowel measures up to approximately 4 cm diameter, which is similar compared to 02/19/2016. No pneumoperitoneum. There is excreted contrast material within the urinary bladder. IMPRESSION: 1. NG tube in stable position compared to 02/19/2016. 2. Persistent small bowel obstruction without pneumoperitoneum or other significant interval change compared to 02/19/2016.
--- NOTE | 2016-02-20 14:40 | NUR ---
POTASSIUM BOLUS STARTED. IV INFILTRATED. ICE GIVEN TO PATIENT ON THE LEFT ANTECUBITAL AREA WHERE THE IV WAS. K WAS RUNNING AT 30ML/HR, HOWEVER STILL MANAGED TO INFILTRATE THE VEIN. SURGICAL PA BOYD NOTIFIED. PER BOYD, THE PATIENT NEEDS TO POTASSIUM. RN ATTEMPTED NEW LINE, RUNNING K AT 30ML/HR WITH NS GOING IN AT THE SAME TIME. PATIENT SAYS SHE DOESN'T FEEL BURNING ANYMORE ON THE NEW SITE (RF). WILL CONT TO MONITOR.
[2016-02-20 15:54] VITALS: BP 160/76
--- NOTE | 2016-02-20 23:35 | NUR ---
NURSING NOTE: MST CALLED THIS NURSE INTO PATIENTS ROOM REPORTING HIGH BLOOD PRESSURE, THIS NURSE RETOOK BP, 180/88. ITNERN 136 NOTIFIED. NEW ORDER AMLODIPINE 5MG PO X1 NOW. WILL PASS ON IN REPORT AND HAVE RE-CHECK BP IN 1 HOUR.
[2016-02-21] VITALS (8 sets, daily range): BP systolic 145–200; BP diastolic 60–88
--- NOTE | 2016-02-21 01:17 | NUR ---
PT B/P 180/68, PAGED SURGICAL PA PER PA NO NEW ORDERS. WILL CONTINUE TO MONITOR PATIENT.
--- NOTE | 2016-02-21 04:00 | NUR ---
PT B/P 180/60.
--- NOTE | 2016-02-21 07:13 | PN- General Surgery ---
Subjective Subjective: The patient was seen this morning. She denies any abdominal pain and reports passing significant flatus but still has yet to have a bowel movement. She has no nausea and is eager to get her NG tube removed. Objective Vital Signs and I&Os Vital Signs Date Time Temp Pulse Resp B/P Pulse O2 O2 Flow FiO2 Ox Delivery Rate 02/20 0307 182/60 02/20 0229 190/60 02/20 0103 188/68 02/20 0011 98.0 87 20 180/88 92 Room Air 02/19 2325 180/88 02/19 1554 98.2 85 19 160/76 92 02/19 1305 Room Air Room Air 02/19 0844 130/74 Intake & Output 02/20 0000 02/19 1600 02/19 0802/19 0000 02/18 1600 Intake Total 525 0 305 856 8079 Output Total 1100 950 675 580 350 Balance -1100 -425 -675 20 850 1050 Intake, IV 525 944 347 7274 Intake, Oral 0 0 0 Intake, Other 550 Output, 250 75 80 350 Gastric Drainage Output, Urine 1100 700 600 500 Patient 101 lb 99 lb 15.99 oz Weight Physical Exam: Gen.: Alert and in obvious distress Skin: Warm and dry Abdomen: Softly distended, nontender, bowel sounds positive. Extremities: Bilateral lower extremities are warm without calf tenderness or significant edema Assessment/Plan Assessment/Plan Assessment: 75-year-old female with a small bowel obstruction currently being treated conservatively. Plan: Continue nothing by mouth and NG tube decompression Serial abdominal exams Follow-up morning laboratory studies IV hydration Out of bed ambulate GI and DVT prophylaxis Core Measures/Miscellaneous Venous Thromboembolism VTE Risk Factors: Acute medical illness VTE Contraindications: No Contraindications VTE Prophylaxis Ordered Inpt Mech & Pharm VTE Diagnosis: No VTE Type: NONE VTE Confirmed by (Test): NONE Beta Jonna Is Beta Jonna a Home Med? No Antibiotics Is Patient on Antibiotics? No
[2016-02-21 07:48] LABS: ABSOLUTE BASOPHIL COUNT 0.1 /CUMM (0.0-0.2); ABSOLUTE EOSINOPHIL COUNT 0.1 /CUMM (0.0-0.7); ABSOLUTE GRANULOCYTE CT 9.4 /CUMM (1.4-6.5); ABSOLUTE LYMPH COUNT 1.4 /CUMM (1.2-3.4); ABSOLUTE MONOCYTE COUNT 0.8 /CUMM (0.10-0.60); BASOPHIL % 1.1 % (0.0-2.0); EOSINOPHIL % 0.7 % (0-5); GRANULOCYTE % 79.6 % (42.2-75.2); HEMATOCRIT 33.4 % (37-47); MEAN CORPUSCULAR HGB 31.1 PG (27.0-31.0); MEAN CORPUSCULAR HGB CONC 33.9 G/DL (33.0-37.0); MEAN CORPUSCULAR VOLUME 91.6 FL (81.0-99.0); MEAN PLATELET VOLUME 7.3 FL (7.4-10.4); PLATELET COUNT 388 /CUMM (130-400); RBC DISTRIBUTION WIDTH 14.3 % (11.5-14.5); RED BLOOD CELL CT 3.65 /CUMM (4.20-5.40); WHITE BLOOD CELL COUNT 11.8 /CUMM (4.8-10.8)
--- NOTE | 2016-02-21 09:01 | NUR ---
NURSING NOTE: BP 199/75 @ 0830. PA MATHEW NOTIFIED. GIVE BP MED NOW PER MATHEW AND RECHECK BP IN 1 HOUR.
--- NOTE | 2016-02-21 10:40 | RADIOLOGY REPORT ---
EXAMINATION: XR ABDOMEN MULTIPLE VIEWS CLINICAL INDICATION: 75-year-old woman with small bowel obstruction. COMPARISON: 02/19/[address], 02/20/2016 radiographs TECHNIQUE: Supine and upright AP films of the abdomen were obtained. FINDINGS: Although there are still a few gas distended loops of small bowel with scattered air-fluid levels, measuring up to 4.8 cm in diameter, the overall appearance is markedly improved, with significant interval decompression. There is increased gas admixed with fecal matter seen throughout nondilated large bowel. IMPRESSION: Significant interval improvement in the patient's previously noted small bowel obstruction post NG tube decompression.
--- NOTE | 2016-02-21 12:00 | PN- General Surgery ---
Subjective Subjective: F-up of SBO Still passing gas but says there was more yesterday, denies any increase in abdominal discomfort no nausea or sweats or shortness of breath. Objective Vital Signs and I&Os I reviewed Vital Signs Date Time Temp Pulse Resp B/P Pulse O2 O2 Flow FiO2 Ox Delivery Rate 02/20 0914 84 200/70 02/20 0851 98.1 75 20 200/74 92 Room Air 02/20 0400 180/60 02/20 0307 182/60 02/20 0229 190/60 02/20 0103 188/68 02/20 0011 98.0 87 20 180/88 92 Room Air 02/19 2325 180/88 02/19 1554 98.2 85 19 160/76 92 02/19 1305 Room Air Room Air I reviewed Intake & Output 02/20 1600 02/20 0800 02/20 0000 02/19 1600 02/19 0800 02/19 0000 Intake Total 600 525 0 600 850 Output Total 1100 950 675 580 Balance -500 -425 -675 20 850 Intake, IV 600 525 600 300 Intake, Oral 0 0 0 Intake, Other 550 Output, 250 75 80 Gastric Drainage Output, Urine 1100 700 600 500 Patient 101 lb Weight Physical Exam: Constitutional: no acute distress no pain Eyes: sclera anicteric ENMT: moist mucous membranes Cardiovascular: S1-S2 no murmurs no peripheral edema Respiratory: clear to auscultation with normal respiratory effort and no intercostal retractions GI: abdomen soft nontender still distended Extremities / lymphatics: free range of motion no peripheral edema Skin: no jaundice no rashes warm, nondiaphoretic Psychiatric: mood and affect are appropriate and alert and oriented to person place and time Current Medications: I reviewed Current Medications Sig/Cesar Start time Last Medication Dose Route Stop Time Status Admin Amlodipine Besylate 5 MG ONCE ONE 02/19 2330 DC 02/19 PO 02/19 2331 2325 Heparin Sodium 5,000 UNIT Q8 02/18 1400 AC 02/20 (Porcine) SC 0546 Lisinopril 40 MG DAILY 02/19 1000 AC 02/20 PO 0914 Magnesium Sulfate 1 GM Q2H 02/20 0930 AC Dextrose/Water 100 ML IV 02/20 1329 Morphine Sulfate 2 MG Q3P PRN 02/18 1300 AC 02/19 IV 1732 Ondansetron HCl 4 MG Q6P PRN 02/18 1300 AC IV Pantoprazole Sodium 40 MG DAILY 02/18 1253 AC 02/20 IV 0912 Phenol 2 SPRAY Q2P PRN 02/18 1300 AC 02/19 EXT 1825 Potassium Chloride 10 MEQ Q1H 02/20 0930 DC IV 02/20 1031 Potassium Chloride 20 MEQ Q13H 02/20 0600 AC Dextrose/Sodium 1,000 ML IV Chloride Potassium Chloride 20 MEQ Q13H 02/18 2115 DC 02/19 Dextrose/Sodium 1,000 ML IV 0843 Chloride Results Last 48 Hours of Labs: I reviewed Laboratory Tests 02/20 02/19 0705 0635 Chemistry Sodium (137 - 145 mmol/L) 132 L 134 L Potassium (3.5 - 5.1 mmol/L) 3.1 L 3.5 Chloride (98 - 107 mmol/L) 91 L 95 L Carbon Dioxide (22 - 30 mmol/L) 30 27 Anion Gap (5 - 16) 11 12 BUN (7 - 17 mg/dL) 5 L 11 Creatinine (0.5 - 1.0 mg/dL) 0.4 L 0.5 Estimated GFR (>60 ml/min) > 60 > 60 BUN/Creatinine Ratio (7 - 25 %) 12.5 22.0 Magnesium (1.6 - 2.3 mg/dL) 1.5 L Hematology CBC w Diff NO MAN DIFF REQ NO MAN DIFF REQ WBC (4.8 - 10.8 /CUMM) 11.8 H 14.0 H RBC (4.20 - 5.40 /CUMM) 3.65 L 3.90 L Hgb (12.0 - 16.0 G/DL) 11.3 L 12.2 Hct (37 - 47 %) 33.4 L 36.1 L MCV (81.0 - 99.0 FL) 91.6 92.6 MCH (27.0 - 31.0 PG) 31.1 H 31.3 H RDW (11.5 - 14.5 %) 14.3 14.3 Plt Count (130 - 400 /CUMM) 388 418 H MPV (7.4 - 10.4 FL) 7.3 L 7.5 Gran % (42.2 - 75.2 %) 79.6 H 78.1 H Lymphocytes % (20.5 - 51.1 %) 12.1 L 11.9 L Monocytes % (1.7 - 9.3 %) 6.5 8.7 Eosinophils % (0 - 5 %) 0.7 0.9 Basophils % (0.0 - 2.0 %) 1.1 0.4 Absolute Granulocytes (1.4 - 6.5 /CUMM) 9.4 H 10.9 H Absolute Lymphocytes (1.2 - 3.4 /CUMM) 1.4 1.7 Absolute Monocytes (0.10 - 0.60 /CUMM) 0.8 H 1.2 H Absolute Eosinophils (0.0 - 0.7 /CUMM) 0.1 0.1 Absolute Basophils (0.0 - 0.2 /CUMM) 0.1 0.1 PUBS MCHC (33.0 - 37.0 G/DL) 33.9 33.8 / 1421 Chemistry Lactic Acid (0.7 - 2.1 mmol/L) 1.0 I reviewed the abdominal x-ray multiview from today compared it to yesterday, it 's better dosed less dilated small bowel and more gas in the colon but there is still some persistent significant dilation of the small bowel seen just to the left of midline. Assessment/Plan Assessment/Plan Impression is persistent small bowel obstruction though improved I feel that its significant enough to warrant exploration because she's had this intermittently repeatedly she gets worse she gets better she gets worse probably for at least 2 months and that each episode is getting worse. So although she is marginally improved, NG output slowing, I feel if we fed her it would take a couple days and then she may have the same symptoms again and I discussed the case with her power of corporate associate attorney I plan is to take her to the operating room today to oh sports laparotomy probable lysis of adhesions possible small bowel resection risks include bleeding infection and anastomotic leak sepsis and cardiopulmonary morbidity related to surgery in general but I feel overall despite her history of hypertension and smoking she should do well. Core Measures/Miscellaneous Venous Thromboembolism VTE Risk Factors: Acute medical illness VTE Contraindications: No Contraindications VTE Prophylaxis Ordered Inpt Mech & Pharm VTE Diagnosis: No VTE Type: NONE VTE Confirmed by (Test): NONE Beta Jonna Is Beta Jonna a Home Med? No Antibiotics Is Patient on Antibiotics? No
--- NOTE | 2016-02-21 13:09 | NUR ---
NURSING NOTE: PATIENT TRANSPORTED TO OR FOR ABD SURGERY @ 2237. PATIENT IS A&O X 3 WITH NO C/O PAIN OR DISCOMFORT. AMBULATING INDEPENDLY. SP02 97% ON RA. BP 199/96 AND THE PA AND DR CASTRO WAS NOTIFIED OF THE BP.
--- NOTE | 2016-02-21 20:03 | Operative Report ---
Operative/Inv Procedure Report Surgery Date: 02/21/16 Name of Procedure: Exploratory laparotomy lysis of adhesions small bowel resection Pre-Operative Diagnosis: Small bowel obstruction Post-Operative Diagnosis: Same Estimated Blood Loss: scant Surgeon/Director Executive Communications: DEREJE LEE,SOCO MARTIN Anesthesia: general endotracheal tube Operative/Procedure Note Note: Patient was positioned supine, after induction of general anesthesia, a tap block was performed, IV antibiotics were given and then the abdomen was prepped and draped from the nipples to the groin in the usual sterile fashion. A midline incision was made with a 10 blade about 10 cm long centered at the umbilicus. The incision was deepened with cautery through Jose's fascia clearing off the linea alba first then carefully incising it avoiding injury to the underlying bowel. The abdomen was explored there was serous not grossly bloody free fluid. The transition point in the small bowel between dilated and decompressed was found with an adhesion between it and the transverse mesocolon. But this area was thickened and it seemed that there was a mass in the small bowel at this point so we decided to excise this small portion of small bowel. The adhesion itself was disconnected with LigaSure. Next a side to side functional end to end stapled anastomosis was made using a COLBY stapler with two 60 mm cartridges, the first to make a common enterotomy, and the second to "T" -off the first. Before actually firing the stapler first we made sure that the 2 sides of small bowel are lined up parallel not twisted or stretched and that the mesenteric fat is cleared off circumferentially where the anastasia will go, we placed a 3-0 silk suture at the top and at the bottom to line them up, then make adjacent enterotomies on the antimesenteric borders inserted the stapler check that fat hasn't rolled in posteriorly, and fired. The second firing which completes the anastomosis and the resection, is checked for hemostasis with cautery, and we closed the small defect in the mesentery with 3-0 Vicryl sutures. Next the abdomen is irrigated checked for hemostasis small bowel is run and checked for any twisting and positioned down and away from the mesenteric defect, repeatedly checking the anastomosis for any bleeding or twisting. After running the bowel was apparent there was one loop of distal small bowel which was adherent to the deep pelvis in my opinion causing twisting and tethering and a potential for an internal hernia so the spent time lysing that adhesion to bring it up, there were no enterotomies. The position of the NG tube was checked and then the incision is closed in layers using 2 continuous runs of single 0 Maxon suture for the fascia then the subcutaneous layer is irrigated again, reapproximated subdermally with interrupted 3-0 Vicryl, followed by skin anastasia and an island dressing. EBL minimal lap and sponge counts correct wound expectancy was clean- contaminated, IV fluids crystalloid complications none, patient tolerated the procedure well and was returned to the recovery room in satisfactory condition.
--- NOTE | 2016-02-21 22:50 | PN- General Surgery ---
Subjective Subjective: POSTOP CHECK Pt is now POD #0 s/p exploratory laparotomy with HERMINIO and sb resection for SBO. She has no major complaints at this time. She was borderline hypertensive in the pacu, but remains relatively stable in the 150's systolic, at this time. Pain is well controlled. No nausea or emesis. NGT remains in place with low output. RN reports slight blood tinge. No flatus or BM yet. Otherwise denies BARNHART, dizziness, chest pain, SOB. Objective Vital Signs and I&Os Vital Signs Date Time Temp Pulse Resp B/P Pulse O2 O2 Flow FiO2 Ox Delivery Rate 02/20 2029 98.3 75 20 156/60 95 Nasal 2.0L Cannula 02/20 1811 72 18 145/73 96 Nasal 2.0L Cannula 02/20 0914 84 200/70 02/20 0851 98.1 75 20 200/74 92 Room Air 02/20 0400 180/60 02/20 0307 182/60 02/20 0229 190/60 02/20 0103 188/68 02/20 0011 98.0 87 20 180/88 92 Room Air 02/19 2325 180/88 Intake & Output 02/20 1600 02/20 0800 02/20 0000 02/19 1600 02/19 0800 02/19 0000 Intake Total 600 525 0 600 850 Output Total 1100 950 675 580 Balance -500 -425 -675 20 850 Intake, IV 600 525 600 300 Intake, Oral 0 0 0 Intake, Other 550 Output, 250 75 80 Gastric Drainage Output, Urine 1100 700 600 500 Patient 101 lb 101 lb Weight Physical Exam: Gen.: Patient is awake and alert. No acute distress. Cardiac: Regular Pulmonary: Lungs are clear bilaterally. Abdomen: Soft and mildly distended. The midline dressing contains about 1-2 cm of drainage at the inferior aspect. There is mild eligio-incisional tenderness, as expected. No bowel sounds were heard as of yet. NG tube remains in place with a small amount of output, slightly bloody tinged. Extremities: No significant lower extremity edema or calf tenderness are appreciated. Alps are in place. Assessment/Plan Assessment/Plan Patient is a 75-year-old female with a past medical history significant for hypertension and hyperlipidemia, who is now postoperative day #0 status post exploratory laparotomy with lysis of adhesions and small bowel resection for SBO. A transition point was identified intraoperatively and patient tolerated the procedure well. She remains relatively stable at this time. Plan: -Continue nothing by mouth with NG tube to low wall suction. Await bowel function. -IV fluids with potassium at 125/hour for now. Continue to monitor I's and O's. Keep funez in place for now. -Check CBC and electrolytes in the morning. Monitor potassium, as patient was hypokalemic this morning. -Continue to monitor blood pressure. It remains stable at this time. -Pain control with morphine as needed for pain. -Protonix for GI prophylaxis. -Subcutaneous heparin and Alps for DVT prophylaxis. Okay for patient to ambulate in the morning. -Antibiotic prophylaxis complete. -Encourage use of Incentive spirometer. Core Measures/Miscellaneous Funez Catheter Date In: 02/21/16 Still Needed? Yes Venous Thromboembolism VTE Risk Factors: Acute medical illness VTE Contraindications: No Contraindications VTE Prophylaxis Ordered Inpt Mech & Pharm VTE Diagnosis: No VTE Type: NONE VTE Confirmed by (Test): NONE Beta Jonna Is Beta Jonna a Home Med? No Antibiotics Is Patient on Antibiotics? No
[2016-02-22] VITALS: BP 154/70
[2016-02-22 05:00] VITALS: BP 168/78
[2016-02-22 06:16] VITALS: BP 168/78
[2016-02-22 07:53] LABS: ABSOLUTE BASOPHIL COUNT 0 /CUMM (0.0-0.2); ABSOLUTE EOSINOPHIL COUNT 0 /CUMM (0.0-0.7); ABSOLUTE GRANULOCYTE CT 12.6 /CUMM (1.4-6.5); ABSOLUTE LYMPH COUNT 1.4 /CUMM (1.2-3.4); ABSOLUTE MONOCYTE COUNT 1.3 /CUMM (0.10-0.60); BASOPHIL % 0.3 % (0.0-2.0); EOSINOPHIL % 0 % (0-5); GRANULOCYTE % 81.9 % (42.2-75.2); HEMATOCRIT 34.3 % (37-47); MEAN CORPUSCULAR HGB CONC 33.5 G/DL (33.0-37.0); MEAN CORPUSCULAR VOLUME 92.3 FL (81.0-99.0); MEAN PLATELET VOLUME 7.3 FL (7.4-10.4); PLATELET COUNT 406 /CUMM (130-400); RBC DISTRIBUTION WIDTH 14.5 % (11.5-14.5); RED BLOOD CELL CT 3.71 /CUMM (4.20-5.40); WHITE BLOOD CELL COUNT 15.4 /CUMM (4.8-10.8)
[2016-02-22 08:22] VITALS: BP 178/76
--- NOTE | 2016-02-22 10:52 | PN- General Surgery ---
Subjective Subjective: POD #1 s/p exploratory laparotomy with SBR/HERMINIO. Resting in bed. Uncomfortable due to many lines connected to her. Denies CP/SOB, N/V, F/C. Eager to ambulate today. Objective Vital Signs and I&Os Vital Signs Date Time Temp Pulse Resp B/P Pulse O2 O2 Flow FiO2 Ox Delivery Rate 02/21 0822 98.0 63 18 178/76 96 Nasal 2.0L Cannula 02/21 0616 98.1 69 18 168/78 97 Room Air 02/21 0500 98.1 69 18 168/78 97 02/21 0000 98.2 70 18 154/70 96 02/21 0000 98.2 70 18 154/70 96 Room Air 02/20 2030 98.3 75 20 156/60 95 Nasal 2.0L Cannula 02/20 1811 72 18 145/73 96 Nasal 2.0L Cannula Intake & Output 02/21 1600 02/21 0800 02/21 0000 02/20 1600 02/20 0800 02/20 0000 Intake Total 600 525 Output Total 350 1100 950 Balance -350 -500 -425 Intake, IV 600 525 Output, 250 Gastric Drainage Output, Urine 350 1100 700 Patient 101 lb Weight Physical Exam: Gen: AAOx3 in NAD Cor: S1+S2+ Lungs: CTA srinivas Abd: soft, NT, ND, +BS x4. Incisional dressing C/D/I. Ext: no edema or calf tenderness to srinivas lower extremities. Feet warm. Current Medications: Current Medications Sig/Cesar Start time Last Medication Dose Route Stop Time Status Admin Ampicillin Sodium/ 3,000 MG Q6 02/20 1900 DC 02/20 Sulbactam Sodium IV 02/21 1928 190 Sodium Chloride 100 ML Fentanyl Citrate 250 MCG .STK-MED ONE 02/20 1309 DC IM 02/20 1310 Heparin Sodium 5,000 UNIT Q8 02/20 2200 AC 02/21 (Porcine) SC 0709 Heparin Sodium 5,000 UNIT Q8 02/18 1400 DC 02/20 (Porcine) SC 0546 Hydromorphone HCl 2 MG .STK-MED ONE 02/20 1309 DC IM 02/20 1310 Lisinopril 40 MG DAILY 02/21 1000 AC 02/21 PO 1045 Lisinopril 40 MG DAILY 02/19 1000 DC 02/20 PO 0914 Magnesium Sulfate 1 GM Q2H 02/20 0930 DC 02/20 Dextrose/Water 100 ML IV 02/20 1329 2116 Midazolam HCl 2 MG .STK-MED ONE 02/20 1310 DC IM 02/20 1311 Morphine Sulfate 2 MG Q2-3 HRS NEEDED.. 02/20 1630 AC 02/21 IV 0718 Morphine Sulfate 4 MG Q2-3 HRS NEEDED.. 02/20 1630 AC IV Morphine Sulfate 2 MG Q3P PRN 02/18 1300 DC 02/19 IV 1732 Ondansetron HCl 4 MG Q6P PRN 02/20 1630 AC IV Ondansetron HCl 4 MG Q6P PRN 02/18 1300 DC IV Pantoprazole Sodium 40 MG DAILY 02/21 1000 AC 02/21 IV 1045 Pantoprazole Sodium 40 MG DAILY 02/18 1253 DC 02/20 IV 0912 Patient Medication 1 UNIT ONE NR 02/20 1645 MT Teaching ED 02/20 1700 Patient Medication 1 UNIT ONE NR 02/20 1645 MT Teaching ED 02/20 1700 Patient Medication 1 UNIT ONE NR 02/20 1645 MT Teaching ED 02/20 1700 Patient Medication 1 UNIT ONE NR 02/20 1645 MT Teaching ED 02/20 1700 Patient Medication 1 ED .STK-MED ONE 02/20 1334 MT Teaching ED 02/20 1335 Phenol 2 SPRAY Q2P PRN 02/20 1630 AC EXT Phenol 2 SPRAY Q2P PRN 02/18 1300 DC 02/19 EXT 1825 Potassium Chloride 20 MEQ Q13H 02/20 1630 AC 02/21 Dextrose/Sodium 1,000 ML IV 0710 Chloride Potassium Chloride 20 MEQ Q13H 02/20 0600 DC Dextrose/Sodium 1,000 ML IV Chloride Results Last 48 Hours of Labs: Laboratory Tests 02/21 02/20 0640 0705 Chemistry Sodium (137 - 145 mmol/L) 133 L 132 L Potassium (3.5 - 5.1 mmol/L) 3.6 3.1 L Chloride (98 - 107 mmol/L) 93 L 91 L Carbon Dioxide (22 - 30 mmol/L) 30 30 Anion Gap (5 - 16) 10 11 BUN (7 - 17 mg/dL) 7 5 L Creatinine (0.5 - 1.0 mg/dL) 0.4 L 0.4 L Estimated GFR (>60 ml/min) > 60 > 60 BUN/Creatinine Ratio (7 - 25 %) 17.5 12.5 Glucose (65 - 99 mg/dL) 121 H Magnesium (1.6 - 2.3 mg/dL) 2.1 1.5 L Hematology CBC w Diff NO MAN DIFF REQ NO MAN DIFF REQ WBC (4.8 - 10.8 /CUMM) 15.4 H 11.8 H RBC (4.20 - 5.40 /CUMM) 3.71 L 3.65 L Hgb (12.0 - 16.0 G/DL) 11.5 L 11.3 L Hct (37 - 47 %) 34.3 L 33.4 L MCV (81.0 - 99.0 FL) 92.3 91.6 MCH (27.0 - 31.0 PG) 31.0 31.1 H RDW (11.5 - 14.5 %) 14.5 14.3 Plt Count (130 - 400 /CUMM) 406 H 388 MPV (7.4 - 10.4 FL) 7.3 L 7.3 L Gran % (42.2 - 75.2 %) 81.9 H 79.6 H Lymphocytes % (20.5 - 51.1 %) 9.3 L 12.1 L Monocytes % (1.7 - 9.3 %) 8.5 6.5 Eosinophils % (0 - 5 %) 0 0.7 Basophils % (0.0 - 2.0 %) 0.3 1.1 Absolute Granulocytes (1.4 - 6.5 /CUMM) 12.6 H 9.4 H Absolute Lymphocytes (1.2 - 3.4 /CUMM) 1.4 1.4 Absolute Monocytes (0.10 - 0.60 /CUMM) 1.3 H 0.8 H Absolute Eosinophils (0.0 - 0.7 /CUMM) 0 0.1 Absolute Basophils (0.0 - 0.2 /CUMM) 0 0.1 PUBS MCHC (33.0 - 37.0 G/DL) 33.5 33.9 Assessment/Plan Assessment/Plan A: POD #1 s/p exploratory laparotomy with HERMINIO/SBR; AVSS. Plan: Remove funez catheter. Due to void at 7:30pm OOB and ambulate. Continue NGT for now. Await increase in bowel function. Core Measures/Miscellaneous Funez Catheter Date In: 02/21/16 Venous Thromboembolism VTE Risk Factors: Acute medical illness VTE Contraindications: No Contraindications VTE Prophylaxis Ordered Inpt Mech & Pharm VTE Diagnosis: No VTE Type: NONE VTE Confirmed by (Test): NONE Beta Jonna Is Beta Jonna a Home Med? No Antibiotics Is Patient on Antibiotics? No
--- NOTE | 2016-02-22 11:16 | PN- General Surgery ---
Surgical Brief Attending Note Brief Attending Note: DOING WELL AFTER SMALL BOWEL RESECTION. AWAIT BOWEL FUNCTION. CONTINUE NG. D/C [place]. AMBULATE WITH ASSISTANCE.
--- NOTE | 2016-02-22 14:15 | Patient Discharge Instructions ---
Discharge Instructions General Discharge Information You were seen/treated for: bowel obstruction, high blood pressure You had these procedures: exploratory laparotomy, lysis of adhesions, small bowel resection Watch for these problems: increasing pain, fever greater than 101F, chest pain, shortness of breath, or redness/drainage of your incisions Call Surgeon to remove: [place] Special Instructions: You may shower. Pat incision dry and do not rub it as it will hurt. No soaking or bathing. Continue new blood pressure medication daily until follow up with primary care physician. 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 editing internship within two weeks of discharge Diet Recommended Diet: Heart Healthy Activity Activity Self Limited: Yes Pounds, do NOT lift more than: 10 Acute Coronary Syndrome Inclusion Criteria At DC or during hospital stay patient has or had the following: ACS DIAGNOSIS No Discharge Core Measures Meds if any: Prescribed or Continued at Discharge Meds if any: NOT Prescribed or Continued at Discharge Congestive Heart Failure Inclusion Criteria At DC or during hospital stay patient has or had the following: CHF DIAGNOSIS No Discharge Core Measures Meds if any: Prescribed or Continued at Discharge Meds if any: NOT Prescribed or Continued at Discharge Cerebrovascular accident Inclusion Criteria At DC or during hospital stay patient has or had the following: CVA/TIA Diagnosis No Discharge Core Measures Meds if any: Prescribed or Continued at Discharge Meds if any: NOT Prescribed or Continued at Discharge Venous thromboembolism Inclusion Criteria VTE Diagnosis No VTE Type NONE VTE Confirmed by (Test) NONE Discharge Core Measures - Per Current guidelines, there needs to be overlap - treatment for the first 5 days of Warfarin therapy. - If discharged on Warfarin prior to 5 days of - overlap therapy, the patient will need to be - assessed for post discharge needs including - *Post discharge parental anticoagulation - *Warfarin and/or parental anticoagulation education - *Follow up date to check INR post discharge At least 5 days overlap therapy as Inpatient No Meds if any: Prescribed or Continued at Discharge Note: Overlap Therapy is Warfarin and Anticoagulant Meds if any: NOT Prescribed or Continued at Discharge
[2016-02-22 16:14] VITALS: BP 152/86
[2016-02-22 23:52] VITALS: BP 165/83
[2016-02-23] VITALS (7 sets, daily range): BP systolic 164–193; BP diastolic 70–98
[2016-02-23 08:18] LABS: ABSOLUTE BASOPHIL COUNT 0.1 /CUMM (0.0-0.2); ABSOLUTE EOSINOPHIL COUNT 0.1 /CUMM (0.0-0.7); ABSOLUTE LYMPH COUNT 1.9 /CUMM (1.2-3.4); ABSOLUTE MONOCYTE COUNT 0.7 /CUMM (0.10-0.60); BASOPHIL % 0.6 % (0.0-2.0); EOSINOPHIL % 0.7 % (0-5); GRANULOCYTE % 80.3 % (42.2-75.2); HEMATOCRIT 39.2 % (37-47); MEAN CORPUSCULAR HGB 30.7 PG (27.0-31.0); MEAN CORPUSCULAR HGB CONC 33.2 G/DL (33.0-37.0); MEAN CORPUSCULAR VOLUME 92.5 FL (81.0-99.0); MEAN PLATELET VOLUME 7.6 FL (7.4-10.4); PLATELET COUNT 494 /CUMM (130-400); RBC DISTRIBUTION WIDTH 14.4 % (11.5-14.5); RED BLOOD CELL CT 4.24 /CUMM (4.20-5.40); WHITE BLOOD CELL COUNT 13.8 /CUMM (4.8-10.8)
--- NOTE | 2016-02-23 08:50 | PN- General Surgery ---
See Addendum Subjective Subjective: Patient is now postoperative day #2 status post respiratory laparotomy with lysis of adhesions and small bowel resection. There were no acute events overnight. She has no major complaints at this time, except for mild discomfort with nasogastric tube. She is requesting removal of possible. She denies nausea, however there has been No flatus or BM as of yet. Pain is well-controlled. Luna catheter was removed yesterday and she is voiding spontaneously. She was noted to be hypertensive again this morning at 193/80. Lisinopril was just given a little bit early. Otherwise denies headache, dizziness, chest pain, shortness of breath. Objective Vital Signs and I&Os Vital Signs Date Time Temp Pulse Resp B/P Pulse O2 O2 Flow FiO2 Ox Delivery Rate 02/23 848 97.5 73 20 193/80 95 Room Air 02/22 0844 73 196/80 02/21 2352 97.9 78 19 165/83 92 Room Air 02/21 1614 98.2 76 18 152/86 93 Room Air 02/21 1045 63 178/76 Intake & Output 02/22 1600 02/22 0800 02/22 0000 02/21 1600 02/21 0700 02/21 0000 Intake Total 600 600 400 600 300 Output Total 1000 25 325 350 525 Balance -400 575 75 250 -225 Intake, IV 600 600 400 600 300 Intake, Oral 0 0 0 0 Number 0 0 0 Bowel Movements Output, 100 25 75 0 25 Gastric Drainage Output, Urine 900 250 350 500 Physical Exam: Gen.: Patient is awake and alert. No acute distress. She was resting upon my arrival, but easily arousable. Cardiac: Regular. Pulmonary: Shallow breathing is noted, but lungs are clear to auscultation bilaterally. No wheezes, rales, rhonchi or appreciated. Abdomen: Soft, nondistended. Dressing was removed. Incision remains clean, dry, and intact with anastasia in place. There is no drainage or surrounding erythema. Hypoactive bowel sounds were heard. Scan output from the NG tube, but it is clear, likely due to intake of ice chips. Extremities: No significant lower extremity edema or calf tenderness appreciated. Results Last 48 Hours of Labs: Laboratory Tests 02/22 02/21 0652 0640 Chemistry Sodium (137 - 145 mmol/L) 134 L 133 L Potassium (3.5 - 5.1 mmol/L) 3.5 3.6 Chloride (98 - 107 mmol/L) 89 L 93 L Carbon Dioxide (22 - 30 mmol/L) 32 H 30 Anion Gap (5 - 16) 14 10 BUN (7 - 17 mg/dL) 4 L 7 Creatinine (0.5 - 1.0 mg/dL) 0.4 L 0.4 L Estimated GFR (>60 ml/min) > 60 > 60 BUN/Creatinine Ratio (7 - 25 %) 10.0 17.5 Glucose (65 - 99 mg/dL) 121 H Phosphorus (2.5 - 4.5 mg/dL) 2.6 Magnesium (1.6 - 2.3 mg/dL) 1.9 2.1 Hematology CBC w Diff NO MAN DIFF REQ NO MAN DIFF REQ WBC (4.8 - 10.8 /CUMM) 13.8 H 15.4 H RBC (4.20 - 5.40 /CUMM) 4.24 3.71 L Hgb (12.0 - 16.0 G/DL) 13.0 11.5 L Hct (37 - 47 %) 39.2 34.3 L MCV (81.0 - 99.0 FL) 92.5 92.3 MCH (27.0 - 31.0 PG) 30.7 31.0 RDW (11.5 - 14.5 %) 14.4 14.5 Plt Count (130 - 400 /CUMM) 494 H 406 H MPV (7.4 - 10.4 FL) 7.6 7.3 L Gran % (42.2 - 75.2 %) 80.3 H 81.9 H Lymphocytes % (20.5 - 51.1 %) 13.5 L 9.3 L Monocytes % (1.7 - 9.3 %) 4.9 8.5 Eosinophils % (0 - 5 %) 0.7 0 Basophils % (0.0 - 2.0 %) 0.6 0.3 Absolute Granulocytes (1.4 - 6.5 /CUMM) 11.0 H 12.6 H Absolute Lymphocytes (1.2 - 3.4 /CUMM) 1.9 1.4 Absolute Monocytes (0.10 - 0.60 /CUMM) 0.7 H 1.3 H Absolute Eosinophils (0.0 - 0.7 /CUMM) 0.1 0 Absolute Basophils (0.0 - 0.2 /CUMM) 0.1 0 PUBS MCHC (33.0 - 37.0 G/DL) 33.2 33.5 Assessment/Plan Assessment/Plan Patient is a 75-year-old female with past medical history significant for hypertension and hyperlipidemia, who is now postoperative day #2 status post exploratory laparotomy with lysis of adhesions and small bowel resection. Still awaiting bowel function. Plan: -Continue nothing by mouth. Consider clamping or removal of NG tube. -Decrease IV fluids to 50 ML's per hour. -Replete potassium. -Lisinopril was given early for hypertension. If it does not improve, consider medical consult for additional recommendations. -Low dose Morphine as needed for pain. -Encourage ambulation. -Incentive spirometry. -Subcutaneous heparin and Alps for DVT prophylaxis. -Protonix for GI prophylaxis. -Will discuss with attending. Core Measures/Miscellaneous Luna Catheter Date In: 02/21/16 Still Needed? No (removd 02/21/15) Venous Thromboembolism VTE Risk Factors: Acute medical illness VTE Contraindications: No Contraindications VTE Prophylaxis Ordered Inpt Mech & Pharm VTE Diagnosis: No VTE Type: NONE VTE Confirmed by (Test): NONE Beta Jonna Is Beta Jonna a Home Med? No Antibiotics Is Patient on Antibiotics? No
--- NOTE | 2016-02-23 12:04 | Cons- Medical ---
MELODY VILLATORO MD 02/23/16 1202: General Information and HPI Consulting Request Date of Consult: 02/23/16 Requested By: DEREJE LEE,SOCO Hernandez Reason for Consult: Post operative HTN Source of Information: patient, family, old records Exam Limitations: no limitations History of Present Illness: This is a 75 year old woman with a PMH of HTN and HLD who presented to the ED on 02/18, with complaints of persistent abdominal pain and distension for 1 week. She was seen in the ED previously on February 13, diagnosed with SBO, but was able to eat and have a normal bowel movement at the time. She was discharged home and asked to follow up with GI as an outpatient, but did not get an appointment till 02/28. 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 She did pass some gas the morning FINAL CLEANER and had also vomited a moderate amount the previous evening. She was admitted to the surgical service for persistent small bowel obstruction. CAT scan done in the ED showed worsening SBO with a transition point in the RLQ. She was initially managed conservatively with bowel rest, NGT for decompression, maintainence IVF and serial abdominal exams. She continues to have the obstruction and was taken into surgery laparotomy with HERMINIO and small bowel resection for SBO on 02/20. Post surgery, BP was stable in the 150's systolic and pain was controlled with morphine as needed. Later, SBP increased to 178 and 193 systolic this AM. She is currently maintained on her home dose of 40 mg of Lisinopril. She only sees her PCP and has never seen a emergency spill response technician in the past. She denies any history of CAD , DM etc. Also denies any chest pain, shortness of breath, palpitations, headaches, nausea, vomiting, changes in vision, changes in urination at this time. States that she has some abdominal cramping intermittently. Pain is currently well controlled with morphine. Allergies/Medications Allergies: Coded Allergies: No Known Allergies (11/18/15) Home Med List: Aspirin (Aspirin*) 81 MG TAB.CHEW 1 TAB PO DAILY HEART HEALTH (Reported) Atorvastatin Calcium 10 MG TABLET 1 TAB PO DAILY CHOLESTEROL (Reported) Calcium Carbonate (Calcium) 600 MG TABLET 1 TAB PO DAILY SUPPLEMENT (Reported ) Cholecalciferol (Vitamin D3) (Vitamin D) 2,000 UNIT TABLET 1 TAB PO DAILY SUPPLEMENT (Reported) Dicyclomine Hydrochloride (Bentyl) 10 MG CAPSULE 1 CAP PO TID pain Lisinopril (Zestril) 40 MG TABLET 1 TAB PO DAILY HEART (Reported) Multivit-Min/FA/Lycopen/Lutein (Centrum Silver Tablet) 1 EACH TABLET 1 TAB PO DAILY SUPPLEMENT (Reported) Current Medications: Current Medications Sig/Cesar Start time Last Medication Dose Route Stop Time Status Admin Heparin Sodium 5,000 UNIT Q8 02/20 2200 AC 02/22 (Porcine) SC 0630 Lisinopril 40 MG DAILY 02/21 1000 AC 02/22 PO 0844 Morphine Sulfate 2 MG Q2-3 HRS NEEDED.. 02/20 1630 AC 02/21 IV 0718 Morphine Sulfate 4 MG Q2-3 HRS NEEDED.. 02/20 1630 AC IV Ondansetron HCl 4 MG Q6P PRN 02/20 1630 AC IV Pantoprazole Sodium 40 MG DAILY 02/21 1000 AC 02/22 IV 0845 Phenol 2 SPRAY Q2P PRN 02/20 1630 AC EXT Potassium Chloride 10 MEQ Q1H 02/22 0915 DC 02/22 IV 02/22 1016 1108 Potassium Chloride 20 MEQ Q13H 02/20 1630 AC 02/22 Dextrose/Sodium 1,000 ML IV 0756 Chloride Review of Systems Review of Systems Constitutional: Reports: see HPI. Past History Travel History Traveled to [place] past 21 day No Medical History Neurological: NONE EENT: NONE Cardiovascular: hypertension, hyperlipidemia Respiratory: NONE Gastrointestinal: diverticulitis Hepatic: NONE Renal: NONE Musculoskeletal: NONE Psychiatric: NONE Endocrine: NONE Blood Disorders: NONE Cancer(s): NONE Surgical History Surgical History: appendectomy, cholecystectomy, hysterectomy Psychosocial History Where Do You Live? Home Services at Home: None Smoking Status: Former Smoker ETOH Use: denies use Illicit Drug Use: denies illicit drug use Exam & Diagnostic Data Last 24 Hrs of Vital Signs/I&O Vital Signs Date Time Temp Pulse Resp B/P Pulse O2 O2 Flow FiO2 Ox Delivery Rate 02/22 0749 97.5 73 20 193/80 95 Room Air 02/22 0844 73 196/80 02/21 2352 97.9 78 19 165/83 92 Room Air 02/21 1614 98.2 76 18 152/86 93 Room Air Intake & Output 02/22 1600 02/22 0800 02/22 0000 Intake Total 600 600 Output Total 1000 350 Balance -400 250 Intake, IV 600 600 Intake, Oral 0 0 Output, 100 100 Gastric Drainage Output, Urine 900 250 Last 24 Hrs of Labs/Ye: Laboratory Tests 02/23/16 0652: Anion Gap 14, Estimated GFR > 60, BUN/Creatinine Ratio 10.0, Phosphorus 2.6, Magnesium 1.9, CBC w Diff NO MAN DIFF REQ, RBC 4.24, MCV 92.5, MCH 30.7, RDW 14.4, MPV 7.6, Gran % 80.3 H, Lymphocytes % 13.5 L, Monocytes % 4.9, Eosinophils % 0.7, Basophils % 0.6, Absolute Granulocytes 11.0 H, Absolute Lymphocytes 1.9, Absolute Monocytes 0.7 H, Absolute Eosinophils 0.1, Absolute Basophils 0.1, PUBS MCHC 33.2 Assessment/Plan Assessment/Plan This is a 75 year old woman with a PMH of HTN and HLD who presented to the ED with persistent abdominal pain, diagnosed with persistent SBO, intially treated conservatively then taken to the OR for laparotomy with HERMINIO and small bowel resection for SBO. Blood pressure elevated over the last 2 days, reaching 190 systolic this AM. Currently maintained on home dose of 40 mg Lisinopril. The elevation in blood pressure could be secondary to stress from the surgery vs increased IVF vs pain. Plan: - Recheck BP and HR now. - Check EKG, add troponin to AM labs to r/o ischemia - Check ECHO - If BP continues to remain elevated (SBP >180), consider adding Amlodipine 5 mg QD to daily regimen for BP control. - Should follow up with her PCP for management of blood pressure after discharge. Addendum: Repeat BP was 165/85 with HR of 83. Repeat manual 156/80, HR: 80 bpm. Thank you for the consult. We will continue to follow the patient with you. Problem List: 1. Hypertension Other Findings/Comments: As above Consult Acknowledgment - Thank you for your consult request. PHILIPPE LEEFLOWERS 02/23/16 5353: Assessment/Plan Consult Acknowledgment - Thank you for your consult request. Attending Review Statement Attending Statement Attending Statement: examined this patient, discuss w/resident/PA/RENAL DIALYSIS TECHNICIAN, agreed w/resident/PA/RENAL DIALYSIS TECHNICIAN, reviewed EMR data (avail), discussed with nursing, reviewed images Attending Assessment/Plan: 75-year-old female with past medical history significant for hypertension, hyperlipidemia, admitted on the floor for subacute intestinal obstruction . Conservative therapy resulting in surgical laparotomy with small bowel resection on February 20. We're being consulted for surgical hypertension. Her systolic blood pressure remains consistently evaluated in 150s/160s/170s. Patient did not complain of any pain or anxiety. She reported that her previous blood pressure had been pretty well controlled in the past. Currently she is taking 40 mg of lisinopril. I examined the patient and the bedside and she denies any headaches , chest pain, shortness of breath, palpitations, blurring of vision, loss of consciousness, abdominal pain, lower extremity edema. He denies any history of coronary artery disease or diabetes mellitus. She does get intermittent abdominal pain which is being controlled with when necessary morphine. On examination she found to be afebrile, not tachy, elevated blood pressure and situated to work on room air, and unremarkable physical examination. Assessment: Post surgical episodes are blood pressure Plan: -continue to monitor blood pressure every hour - Start patient on a low-dose of beta rene, amlodipine 5 mg - Troponins to rule out any ischemic event, first troponin is negative - EKG done, that shows ordered bundle branch block with no ischemic changes - Will consider doing an echo - We will gradually add additional medication or go up on amlodipine and lisinopril should the blood pressure remains elevated - We will continue to monitor - Reassurance given to the patient and recommended to call the doctor in case if she develops chest pain, shortness of breath, headache or blurring of vision - Also educated to follow-up with her primary care physician once she is out of this acute post surgical condition.
--- NOTE | 2016-02-23 15:37 | NUR ---
NURSING NOTE: PATIENT BP 196/80 @ 0800. VERONICA MULLEN NOTIFIED. ADMIN LISINIPRIL 40MG PER PA AND RECHECK BP IN 1 HOUR. RECHECKED BP 193/85 @ 0930. VERONICA ORDERED A MEDICAL CONSULT. MEDICAL TEAM ORDERED BP TAKEN MANUIALLY. BP 156/80 WHEN CHECKED MANNUALY. MANAGER WOUND PREETHI NOTIFIED.
--- NOTE | 2016-02-23 15:44 | NUR ---
NURSING NOTE: NGT DC'D @ 1259 PER MD'S ORDER.
--- NOTE | 2016-02-23 20:02 | NUR ---
NURSING NOTE: BP 172/70 @ 1800 AND 182/80 @ 1900. SURGICAL VERONICA MULLEN NOTIFIED AND RDERED NORVASC 5MG. REPORT GIVEN TO NIGHT NURSE.
[2016-02-24 00:10] VITALS: BP 169/74
--- NOTE | 2016-02-24 00:40 | NUR ---
NURSING NOTE: PATIENT'S BP MONITORED QHR FROM 6PM TO 10PM. NORVASC GIVEN PER ORDER @ 2029. PATIENT'S BP SLOWLY DECREASING. BP @ 2300 169/74. SURGICAL PA NOTIFIED. NO NEW ORDERS AT THIS TIME. WILL CONTINUE TO MONITOR.
--- NOTE | 2016-02-24 07:14 | PN- General Surgery ---
See Addendum Subjective Subjective: The patient was seen this morning postoperatively day #3. She reports her pain is under adequate control and has no other complaints at the current time. She denies passing any flatus or having bowel movements as of yet. She is not nauseous or burping and is eager to start on a diet. Objective Vital Signs and I&Os Vital Signs Date Time Temp Pulse Resp B/P Pulse O2 O2 Flow FiO2 Ox Delivery Rate 02/23 0010 97.8 78 18 169/74 94 Room Air 02/22 2202 176/72 02/22 2053 180/78 02/23 2024 200/88 02/22 2001 172/80 02/22 1900 182/80 02/22 1815 172/70 02/22 1557 97.6 87 17 164/98 94 Room Air 02/22 0849 97.5 73 20 193/80 95 Room Air 02/22 0844 73 196/80 Intake & Output 02/23 0000 02/22 1600 02/22 0000 02/21 1600 Intake Total 525 525 650 600 600 400 Output Total 1300 1275 1000 25 325 Balance -775 525 -625 -400 575 75 Intake, IV 525 525 650 600 600 400 Intake, Oral 0 0 Number 0 0 Bowel Movements Output, 75 100 25 75 Gastric Drainage Output, Urine 1300 1200 900 250 Physical Exam: Gen.: Alert and obvious distress Skin: Warm and dry Abdomen: Softly distended, mild. Incisional tenderness, bowel sounds sluggish. Surgical incision is clean, dry, and intact with surgical clips in place. Extremities: Bilateral lower extremities are warm without calf tenderness or significant edema. Assessment/Plan Assessment/Plan Assessment: 75-year-old female status post exploratory laparotomy with lysis of adhesions and small bowel resection due to obstruction postoperative day #3. The patient is progressing as expected however her bowel function has yet to return. The patient's blood pressure is somewhat improved with the addition of Norvasc Plan: Continue nothing by mouth with IV hydration until improved bowel function Out of bed and ambulate GI and DVT prophylaxis Follow up morning laboratory studies Continue to monitor blood pressure Follow-up medical consultation recommendations Keep on current pain regiment Core Measures/Miscellaneous Luna Catheter Date In: 02/21/16 Venous Thromboembolism VTE Risk Factors: Acute medical illness VTE Contraindications: No Contraindications VTE Prophylaxis Ordered Inpt Mech & Pharm VTE Diagnosis: No VTE Type: NONE VTE Confirmed by (Test): NONE Beta Jonna Is Beta Jonna a Home Med? No Antibiotics Is Patient on Antibiotics? No
[2016-02-24 07:48] LABS: ABSOLUTE BASOPHIL COUNT 0.1 /CUMM (0.0-0.2); ABSOLUTE EOSINOPHIL COUNT 0.2 /CUMM (0.0-0.7); ABSOLUTE GRANULOCYTE CT 9.4 /CUMM (1.4-6.5); ABSOLUTE LYMPH COUNT 1.8 /CUMM (1.2-3.4); ABSOLUTE MONOCYTE COUNT 0.9 /CUMM (0.10-0.60); BASOPHIL % 0.7 % (0.0-2.0); EOSINOPHIL % 1.5 % (0-5); GRANULOCYTE % 75.9 % (42.2-75.2); HEMATOCRIT 36.7 % (37-47); MEAN CORPUSCULAR HGB 30.6 PG (27.0-31.0); MEAN CORPUSCULAR HGB CONC 33.3 G/DL (33.0-37.0); MEAN PLATELET VOLUME 7.5 FL (7.4-10.4); PLATELET COUNT 453 /CUMM (130-400); RBC DISTRIBUTION WIDTH 14.4 % (11.5-14.5); RED BLOOD CELL CT 3.99 /CUMM (4.20-5.40); WHITE BLOOD CELL COUNT 12.4 /CUMM (4.8-10.8)
--- NOTE | 2016-02-24 08:10 | PN- Medicine Consult ---
See Addendum Assessment/Plan Assessment/Plan Assessment: Patient is a 75 year old woman with a PMH of HTN and HLD who presented to the ED on 02/18, with complaints of persistent abdominal pain and distension for 1 week. She was seen in the ED previously on February 13, diagnosed with SBO, but was able to eat and have a normal bowel movement at the time. She was discharged home and asked to follow up with GI as an outpatient, but did not get an appointment till 02/28. 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 She was admitted to the surgical service for persistent small bowel obstruction. CAT scan done in the ED showed worsening SBO with a transition point in the RLQ. She was initially managed conservatively with bowel rest, NGT for decompression, maintainence IVF and serial abdominal exams. She continues to have the obstruction and was taken into surgery laparotomy and small bowel resection for SBO on 02/20. Post surgery, BP was stable in the 150's systolic and pain was controlled with morphine as needed. Later, SBP increased to 178 and 193 systolic this AM. She denies any history of CAD, DM etc. Also denies any chest pain, shortness of breath, palpitations, headaches, nausea, vomiting, changes in vision, changes in urination at this time. States that she has some abdominal cramping intermittently. Plan: - BP improved this am on 40 lisinopril and 5 mg of amlodipine. -Medication reconcilliation shows that patient was on 10 mg of amlopidone refilled on 12/17/15, please confirm CMR - Hypokalemia K 3.2, recommend 2 x 10 med IV runs of K in addition to adding 40 meq to IV fluids. Please note that 10 meq of K raise K by only 0.1 units. DVT ppx SC heprin Patient is NPO untill the return of her bowel function. -We will continue to follow. Problem List: 1. Abdominal pain 2. Hypertension Subjective Subjective: Patient seen and examined. Feels well. Denies any abdominal pain. chest pain, difficulty breathing, headache etc. Patient states she is hungry and she wants to eat. Did not pass any flatus/ no bm afebrile, vitals stable Review of Systems Constitutional: Reports: no symptoms. Objective Last 24 Hrs of Vital Signs/I&O Vital Signs Date Time Temp Pulse Resp B/P Pulse O2 O2 Flow FiO2 Ox Delivery Rate 02/24 0815 97.8 79 18 160/78 96 Room Air 02/23 0909 152/78 02/23 0010 97.8 78 18 169/74 94 Room Air 02/22 2202 176/72 02/224 180/78 02/22 202 200/88 02/22 2001 172/80 02/22 1900 182/80 02/22 181 172/70 02/22 1557 97.6 87 17 164/98 94 Room Air Intake & Output 02/23 1600 02/23 0800 02/23 0000 Intake Total 525 525 Output Total 1300 Balance -775 525 Intake, IV 525 525 Output, Urine 1300 Physical Exam General Appearance: well developed/nourished, no apparent distress, alert Head: atraumatic, normal appearance Ears, Nose, Throat: normal pharynx Cardiovascular: regular rate/rhythm Respiratory: normal breath sounds Abdomen: surgical incision is clean and dry. Surgical clips in place. Abdomen mildy tender at surgical site, slow bowel sounds Current Medications: Current Medications Sig/Cesar Start time Last Medication Dose Route Stop Time Status Admin Amlodipine Besylate 10 MG DAILY 02/23 999 DC PO Amlodipine Besylate 5 MG DAILY 02/23 999 AC PO Amlodipine Besylate 5 MG DAILY 02/22 192 DC 02/22 PO 2024 Heparin Sodium 5,000 UNIT Q8 02/20 2200 AC 02/23 (Porcine) SC 0540 Lisinopril 40 MG DAILY 02/21 1000 AC 02/23 PO 0909 Morphine Sulfate 2 MG Q2-3 HRS NEEDED.. 02/20 1630 AC 02/21 IV 0718 Morphine Sulfate 4 MG Q2-3 HRS NEEDED.. 02/20 1630 AC IV Ondansetron HCl 4 MG Q6P PRN 02/20 1630 IV Pantoprazole Sodium 40 MG DAILY 02/21 1000 AC 02/23 IV 0906 Patient Medication 1 UNIT ONE NR 02/22 1930 NM Teaching ED 02/22 1999 Phenol 2 SPRAY Q2P PRN 02/20 1630 AC EXT Potassium Chloride 10 MEQ Q1H 02/23 0815 DC 02/22 IV 02/22 1016 1245 Potassium Chloride 20 MEQ Q13H 02/20 1630 AC 02/23 Dextrose/Sodium 1,000 ML IV 0909 Chloride Results Last 24 Hrs Lab/Ye Results: Laboratory Tests 02/24/16 0613: Anion Gap 12, Estimated GFR > 60, BUN/Creatinine Ratio 10.0, Magnesium 1.7, CBC w Diff NO MAN DIFF REQ, RBC 3.99 L, MCV 92.0, MCH 30.6, RDW 14.4, MPV 7.5, Gran % 75.9 H, Lymphocytes % 14.8 L, Monocytes % 7.1, Eosinophils % 1.5, Basophils % 0.7, Absolute Granulocytes 9.4 H, Absolute Lymphocytes 1.8, Absolute Monocytes 0.9 H, Absolute Eosinophils 0.2, Absolute Basophils 0.1, PUBS MCHC 33.3
[2016-02-24 09:15] VITALS: BP 160/78
[2016-02-24 16:08] VITALS: BP 148/82
[2016-02-25 00:14] VITALS: BP 148/60
--- NOTE | 2016-02-25 08:17 | PN- General Surgery ---
See Addendum Subjective Subjective: Reports tolerating clears. No nausea. Passing "a lot of gas". No bm yet. Voiding "too much". Reports ambulating without difficulty. No dizziness. No shortness of breath. No chest pains. Objective Vital Signs and I&Os Vital Signs Date Time Temp Pulse Resp B/P Pulse O2 O2 Flow FiO2 Ox Delivery Rate 02/24 0014 97.8 81 20 148/60 93 Room Air 02/23 1608 97.6 80 18 148/82 95 02/23 1220 146/82 02/23 0915 97.8 79 18 160/78 96 Room Air 02/23 0909 152/78 Intake & Output 02/24 1600 02/24 0802/24 0000 02/23 1600 02/23 0000 Intake Total 400 600 30 525 525 Output Total 900 1300 Balance -500 600 30 -775 525 Intake, IV 400 600 525 525 Intake, Oral 30 Output, Urine 900 1300 Physical Exam: General - alert & oriented x 3. comfortable. no acute distress. Lungs - clear bilaterally. no w/r/r. Cardiac - s1s2. reg. Abdomen - soft. hypoactive bowel sounds appreciated. midline incision well approximated with anastasia. no erythema or exudates. Extremities - warm bilaterally. no c/c/e. calves soft and nontender b/l. Assessment/Plan Assessment/Plan This 75-year-old female is POD#4 s/p ex lap, tessa, small bowel resection due to obstruction, hypertension improved with norvasc tolerating clears. d/c iv fluids awaiting bm to advance diet pain control as needed, as ordered f/u labs hep sc - dvt ppx oob/ambulation f/u medical consult will d/w Core Measures/Miscellaneous Luna Catheter Date In: 02/21/16 Venous Thromboembolism VTE Risk Factors: Acute medical illness VTE Contraindications: No Contraindications VTE Prophylaxis Ordered Inpt Mech & Pharm VTE Diagnosis: No VTE Type: NONE VTE Confirmed by (Test): NONE Beta Jonna Is Beta Jonna a Home Med? No Antibiotics Is Patient on Antibiotics? No
[2016-02-25 08:19] VITALS: BP 154/82
[2016-02-25 08:46] LABS: ABSOLUTE BASOPHIL COUNT 0 /CUMM (0.0-0.2); ABSOLUTE EOSINOPHIL COUNT 0.1 /CUMM (0.0-0.7); ABSOLUTE LYMPH COUNT 1.7 /CUMM (1.2-3.4); ABSOLUTE MONOCYTE COUNT 0.6 /CUMM (0.10-0.60); BASOPHIL % 0.1 % (0.0-2.0); EOSINOPHIL % 0.8 % (0-5); HEMATOCRIT 36.4 % (37-47); MEAN CORPUSCULAR HGB 30.9 PG (27.0-31.0); MEAN CORPUSCULAR HGB CONC 33.5 G/DL (33.0-37.0); MEAN CORPUSCULAR VOLUME 92.2 FL (81.0-99.0); MEAN PLATELET VOLUME 7.2 FL (7.4-10.4); PLATELET COUNT 461 /CUMM (130-400); RBC DISTRIBUTION WIDTH 14.1 % (11.5-14.5); RED BLOOD CELL CT 3.94 /CUMM (4.20-5.40); WHITE BLOOD CELL COUNT 15.5 /CUMM (4.8-10.8)
[2016-02-25 09:16] LABS: GRANULOCYTE % 84.2 % (42.2-75.2)
--- NOTE | 2016-02-25 09:23 | PN- Medicine Consult ---
FARHANA BRYANT 02/25/16 0922: Assessment/Plan Assessment/Plan Assessment: Patient is a 75 year old woman with a PMH of HTN and HLD who presented to the ED on 02/18, with complaints of persistent abdominal pain and distension for 1 week. She was seen in the ED previously on February 13, diagnosed with SBO, but was able to eat and have a normal bowel movement at the time. She was discharged home and asked to follow up with GI as an outpatient, but did not get an appointment till 02/28. 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 She was admitted to the surgical service for persistent small bowel obstruction. CAT scan done in the ED showed worsening SBO with a transition point in the RLQ. She was initially managed conservatively with bowel rest, NGT for decompression, maintainence IVF and serial abdominal exams. She continues to have the obstruction and was taken into surgery laparotomy and small bowel resection for SBO on 02/20. Post surgery, BP was stable in the 150's systolic and pain was controlled with morphine as needed. Later, SBP increased to 178 and 193 systolic this AM. She denies any history of CAD, DM etc. Also denies any chest pain, shortness of breath, palpitations, headaches, nausea, vomiting, changes in vision, changes in urination at this time. States that she has some abdominal cramping intermittently. Plan: -Patient has leukocytosis, recommend UA,UC and CXR to find the source of infection. - BP improved this am on 40 lisinopril and 5 mg of amlodipine. - Patient continues to be Hypokalemic K 3.4, recommend 2 x 10 med IV runs of K. If patient starts to tolerate oral diet, can give 40 meq PO once. Please note that 10 meq of K raise K by only 0.1 units. DVT ppx SC heprin Patient is on full liquid diet. Surgery plans to start to regular diet after a bowel movement. Subjective Subjective: Patient seen and examined. Doing well, is passing flatus but had no bowel movement yet. Feels hungry, is on full liquid diet. Denies any abdominal pain, chestpain, headache, dizziness. BP well controlled. vitals stable. Review of Systems Constitutional: Reports: see HPI. Objective Last 24 Hrs of Vital Signs/I&O Vital Signs Date Time Temp Pulse Resp B/P Pulse O2 O2 Flow FiO2 Ox Delivery Rate 02/24 1057 78 154/82 02/24 1056 78 154/82 02/24 0819 98.2 78 20 154/82 96 Room Air 02/24 0014 97.8 81 20 148/60 93 Room Air 02/23 1608 97.6 80 18 148/82 95 Intake & Output 02/24 1600 02/24 0800 02/24 0000 Intake Total 850 400 600 Output Total 900 Balance 850 -500 600 Intake, IV 250 400 600 Intake, Oral 600 Number 0 Bowel Movements Output, Urine 900 Physical Exam General Appearance: well developed/nourished, no apparent distress, alert, awake Head: atraumatic, normal appearance Cardiovascular: regular rate/rhythm Respiratory: normal breath sounds, chest non-tender Abdomen: normal bowel sounds, soft, non-tender, surgical incisions clean and dry Current Medications: Current Medications Sig/Cesar Start time Last Medication Dose Route Stop Time Status Admin Amlodipine Besylate 5 MG DAILY 02/23 1000 AC 02/24 PO 1056 Atorvastatin Calcium 20 MG 1700 02/24 1700 AC PO Atorvastatin Calcium 10 MG 1700 02/23 1700 DC 02/23 PO 2117 Heparin Sodium 5,000 UNIT Q8 02/20 2200 AC 02/24 (Porcine) SC 1305 Lisinopril 40 MG DAILY 02/21 1000 AC 02/24 PO 1057 Morphine Sulfate 2 MG Q2-3 HRS NEEDED.. 02/20 1630 AC 02/21 IV 0718 Morphine Sulfate 4 MG Q2-3 HRS NEEDED.. 02/20 1630 AC IV Ondansetron HCl 4 MG Q6P PRN 02/20 1630 AC IV Pantoprazole Sodium 40 MG DAILY 02/21 1000 AC 02/24 IV 1057 Phenol 2 SPRAY Q2P PRN 02/20 1630 AC EXT Potassium Chloride 10 MEQ Q1H 02/24 1030 CAN IV 02/24 1131 Potassium Chloride 40 MEQ ONCE ONE 02/24 1030 DC 02/24 PO 02/24 1031 1108 Potassium Chloride 20 MEQ Q13H 02/20 1630 DC 02/23 Dextrose/Sodium 1,000 ML IV 2122 Chloride Results Last 24 Hrs Lab/Ye Results: Laboratory Tests 02/25/16 0705: Anion Gap 13, Estimated GFR > 60, BUN/Creatinine Ratio 18.0, CBC w Diff NO MAN DIFF REQ, RBC 3.94 L, MCV 92.2, MCH 30.9, RDW 14.1, MPV 7.2 L, Gran % 84.2 H, Lymphocytes % 11.2 L, Monocytes % 3.7, Eosinophils % 0.8, Basophils % 0.1, Absolute Granulocytes 13.0 H, Absolute Lymphocytes 1.7, Absolute Monocytes 0.6, Absolute Eosinophils 0.1, Absolute Basophils 0, PUBS MCHC 33.5 PRAFUL LEE,LOUISE 02/25/16 1336: Attending MD Review Statement Attending Sign Off Attending Cosign Statement: I have: examined this patient, reviewed [facility] EMR data, personally reviewd images, discussd w/resident/PA/AUTO SEAT COVER INSTALLER, discussed mgmt plan w/bhavana, discussed mgmt plan w/pt, agreed w/resident/PA/AUTO SEAT COVER INSTALLER, amended to note. Other Findings: Patient seen and examined, continues to improve. She has been started on full liquid diet. She is passing status but has not had a bowel movement yet. The patient remained stable. At this point recommend repleting potassium aggressively. Continue current antibiotics regimen. Diet advanced per surgery. She does have a slight increase in her white count today, will monitor. Please check urinalysis and culture and CXr. DVT prophylaxis: Heparin subcutaneous
--- NOTE | 2016-02-25 09:50 | ECHOCARDIOGRAM REPORT ---
JERILYN BLANCO Age: 75 : 1940 Gender: F Exam Date: 02/24/2016 19:10 Exam Location: [address] [place] [address] Ht (in): 63 Wt (lb): 101 BSA: 1.42 BP: / Ordering Physician: TRICE TAYLOR Referring Physician: TRICE TAYLOR Technologist: Aida Gayle HUSEYIN Room Number: 212 Indications: HYPERTENSION Rhythm: Sinus Technical Quality: Good FINDINGS Left Ventricle Normal size left ventricle. Moderate concentric left ventricular hypertrophy. Normal left ventricular ejection fraction visually estimated at >65 %. Abnormal relaxation filling pattern of the left ventricle for age (stage 1 diastolic dysfunction). Right Ventricle The right ventricle is normal in size and function. Right Atrium The right atrium is normal in size. Left Atrium The left atrium is normal in size. The interatrial septum is intact. Mitral Valve Mild thickening/calcification of the mitral valve leaflets. Mild mitral regurgitation. Aortic Valve Focal thickening of the aortic valve cusps. No aortic stenosis. Trace aortic regurgitation. Tricuspid Valve The tricuspid valve is normal in structure and function. There is mild tricuspid regurgitation. Right ventricular systolic pressure estimated to be elevated at 45-50 mmHg. Pulmonic Valve Structurally normal pulmonic valve. There is no pulmonic regurgitation. Pericardium Normal pericardium without effusion. No pleural effusion. Great Vessels Normal aortic root dimension. The aortic arch and great vessels are well seen and are normal. CONCLUSIONS Moderate concentric left ventricular hypertrophy. Normal left ventricular ejection fraction visually estimated at >65 Abnormal relaxation filling pattern of the left ventricle for age (stage 1 diastolic dysfunction). The left atrium is normal in size. Mild thickening/calcification of the mitral valve leaflets. Focal thickening of the aortic valve cusps. No aortic stenosis. Trace aortic regurgitation. Right ventricular systolic pressure estimated to be elevated at 45- 50 mmHg. Doug Hays M.D. (Electronically Signed) Final Date: 25 February 2016 09:49 MEASUREMENTS (Male / Female) Normal Values 2D ECHO LV Diastolic Diameter PLAX 3.2 cm 4.2 - 5.9 / 3.9 - 5.3 cm LV Systolic Diameter PLAX 1.6 cm 2.1 - 4.0 cm LV Fractional Shortening PLAX 50.0 % 25 - 46 % LV Ejection Fraction 2D Teich 82.5 % IVS Diastolic Thickness 1.4 cm LVPW Diastolic Thickness 1.3 cm LV Relative Wall Thickness 0.8 RV Internal Dim ED PLAX 2.6 cm 1.9 - 3.8 cm LVOT Diameter 1.9 cm Aortic Root Diameter 2.5 cm LA Systolic Diameter LX 2.6 cm 3.0 - 4.0 / 2.7 - 3.8 cm LA Volume 20.0 cm 18 - 58 / 22 - 52 cm Ascending Aorta Diameter 2.4 cm DOPPLER AV Peak Velocity 124.0 cm/s AV Peak Gradient 6.2 mmHg AV Mean Velocity 84.4 cm/s AV Mean Gradient 3.0 mmHg AV Velocity Time Integral 22.1 cm LVOT Peak Velocity 108.0 cm/s LVOT Peak Gradient 4.7 mmHg LVOT Mean Velocity 68.2 cm/s LVOT Mean Gradient 2.0 mmHg LVOT Velocity Time Integral 19.1 cm LVOT Stroke Volume 54.2 cm AV Area Cont Eq vti 2.5 cm AV Area Cont Eq pk 2.5 cm MV Peak Velocity 95.8 cm/s MV Peak Gradient 3.7 mmHg MV Mean Velocity 49.7 cm/s MV Mean Gradient 1.0 mmHg Mitral E Point Velocity 51.3 cm/s Mitral A Point Velocity 81.9 cm/s Mitral E to A Ratio 0.6 MV PHT Velocity 71.8 cm/s MV Deceleration Graves 317.0 cm/s MV Pressure Half Time 67.9 ms MV Area PHT 3.2 cm MV Deceleration Time 335.0 ms TR Peak Velocity 322.0 cm/s TR Peak Gradient 41.5 mmHg Right Atrial Pressure 5.0 mmHg Pulmonary Artery Systolic Pressu 46.5 mmHg Right Ventricular Systolic Press 46.5 mmHg PV Peak Velocity 128.0 cm/s PV Peak Gradient 6.6 mmHg PV Mean Velocity 86.3 cm/s PV Mean Gradient 3.0 mmHg PV Velocity Time Integral 20.6 cm LV E' Lateral Velocity 7.0 cm/s Mitral E to LV E' Lateral Ratio 7.4 LV E' Septal Velocity 7.6 cm/s Mitral E to LV E' Septal Ratio 6.8
[2016-02-25 16:21] VITALS: BP 132/86
[2016-02-25 23:52] VITALS: BP 148/70
[2016-02-26 07:14] VITALS: BP 132/84
--- NOTE | 2016-02-26 07:25 | PN- General Surgery ---
Subjective Subjective: Awake, alert, OOB ambulating Had 2 bm's this morning - solid, formed, no pain Tolerating regular diet without pain or nausea Pain well controlled Objective Vital Signs and I&Os Vital Signs Date Time Temp Pulse Resp B/P Pulse O2 O2 Flow FiO2 Ox Delivery Rate 02/25 0714 98.1 68 20 132/84 95 Room Air 02/24 2352 98.2 84 18 148/70 93 Room Air 02/24 1621 97.9 82 19 132/86 94 02/24 1057 78 154/82 02/24 1056 78 154/82 02/24 0819 98.2 78 20 154/82 96 Room Air Intake & Output 02/25 0800 02/25 0000 02/24 1600 02/24 0800 02/24 0000 02/23 1600 Intake Total 500 100 850 400 600 30 Output Total 550 500 900 Balance -50 -400 850 -500 600 30 Intake, IV 250 400 600 Intake, Oral 500 100 600 30 Number 2 0 Bowel Movements Output, Urine 550 500 900 Physical Exam: afebrile, vss General: alert and oriented times three Chest: clear anteriorly bilaterally, RRR Abd: soft, good bs, nontender, nondistended Wound: looks good, anastasia intact Ext: warm, no edema Assessment/Plan Assessment/Plan 75 yo female s/p ex lap/tessa small bowel resection for sbo bowel function returned continue regular diet dc home after breakfast Core Measures/Miscellaneous Venous Thromboembolism VTE Risk Factors: Acute medical illness VTE Contraindications: No Contraindications VTE Prophylaxis Ordered Inpt Mech & Pharm VTE Diagnosis: No VTE Type: NONE VTE Confirmed by (Test): NONE Beta Jonna Is Beta Jonna a Home Med? No Antibiotics Is Patient on Antibiotics? No
[2016-02-26] MEDS ORDERED: PERCOCET 5-3251 EACH PO (07:27)
[2016-02-26] MEDS ORDERED: AMLODIPINE BESYL5 M1 PO (07:31)
[2016-02-26 07:58] LABS: ABSOLUTE BASOPHIL COUNT 0 /CUMM (0.0-0.2); ABSOLUTE EOSINOPHIL COUNT 0.2 /CUMM (0.0-0.7); ABSOLUTE GRANULOCYTE CT 8.3 /CUMM (1.4-6.5); ABSOLUTE LYMPH COUNT 1.7 /CUMM (1.2-3.4); ABSOLUTE MONOCYTE COUNT 1.1 /CUMM (0.10-0.60); BASOPHIL % 0.4 % (0.0-2.0); EOSINOPHIL % 1.9 % (0-5); GRANULOCYTE % 73.5 % (42.2-75.2); HEMATOCRIT 33.4 % (37-47); MEAN CORPUSCULAR HGB 31.1 PG (27.0-31.0); MEAN CORPUSCULAR HGB CONC 33.9 G/DL (33.0-37.0); MEAN CORPUSCULAR VOLUME 91.9 FL (81.0-99.0); MEAN PLATELET VOLUME 6.9 FL (7.4-10.4); PLATELET COUNT 418 /CUMM (130-400); RBC DISTRIBUTION WIDTH 14.3 % (11.5-14.5); RED BLOOD CELL CT 3.63 /CUMM (4.20-5.40); WHITE BLOOD CELL COUNT 11.3 /CUMM (4.8-10.8)
--- NOTE | 2016-02-26 09:30 | Discharge Summary ---
Visit Information Visit Dates Admission Date: 02/19/16 Discharge Date: 02/26/16 Hospital Course Course Attending Physician: SOCO REYEZ MD Primary Care Physician: MARIE IVERSON [facility] Course: SBO NGT first then to OR -adhesion at a nodule ? path pending, did well 2 BMs last night no NV, afebrile abdomen soft, labs stable DC today. Allergies: Coded Allergies: No Known Allergies (11/18/15) Disposition Summary Disposition Principal Diagnosis: SBO Additional Diagnosis: no Discharge Disposition: home or self care Discharge Instructions General Discharge Information Code Status: Full Code Patient's Diet: resume Patient's Activity: no straining Follow-Up Instructions/Appts: office for anastasia Medications at Discharge Discharge Medications: Continue taking these medications: Aspirin (Aspirin*) 81 MG TAB.CHEW 1 Tablet ORAL DAILY Atorvastatin Calcium (Atorvastatin Calcium) 10 MG TABLET 1 Tablet ORAL DAILY Lisinopril (Zestril) 40 MG TABLET 1 Tablet ORAL DAILY Calcium Carbonate (Calcium) 600 MG TABLET 1 Tablet ORAL DAILY Multivit-Min/FA/Lycopen/Lutein (Centrum Silver Tablet) 1 EACH TABLET 1 Tablet ORAL DAILY Cholecalciferol (Vitamin D3) (Vitamin D) 2,000 UNIT TABLET 1 Tablet ORAL DAILY Dicyclomine Hydrochloride (Bentyl) 10 MG CAPSULE 1 Capsule ORAL THREE TIMES DAILY Qty = 15 Start taking the following new medications: Amlodipine Besylate (Amlodipine Besylate) 5 MG TABLET 1 Tablet ORAL DAILY Qty = 30 No Refills Oxycodone HCl/Acetaminophen (Percocet 5-325 MG Tablet) 5 MG-325 MG TABLET 1 Tablet ORAL EVERY 4 HOURS NEEDED as needed for pain Qty = 20 No Refills Copies To: DEREJE LEE,SOCO Hernandez Attending MD Review Statement Documenting Attending: SOCO REYEZ MD
[2016-02-26 10:19] VITALS: BP 132/84
--- NOTE | 2016-02-26 10:32 | PN- Medicine Consult ---
FARHANA BRYANT 02/26/16 1030: Assessment/Plan Assessment/Plan Assessment: Patient is a 75 year old woman with a PMH of HTN and HLD who presented to the ED on 02/18, with complaints of persistent abdominal pain and distension for 1 week. She was seen in the ED previously on February 13, diagnosed with SBO, but was able to eat and have a normal bowel movement at the time. She was discharged home and asked to follow up with GI as an outpatient, but did not get an appointment till 02/28. 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 She was admitted to the surgical service for persistent small bowel obstruction. CAT scan done in the ED showed worsening SBO with a transition point in the RLQ. She was initially managed conservatively with bowel rest, NGT for decompression, maintainence IVF and serial abdominal exams. She continues to have the obstruction and was taken into surgery laparotomy and small bowel resection for SBO on 02/20. Post surgery, BP was stable in the 150's systolic and pain was controlled with morphine as needed. Later, SBP increased to 178 and 193 systolic this AM. She denies any history of CAD, DM etc. Also denies any chest pain, shortness of breath, palpitations, headaches, nausea, vomiting, changes in vision, changes in urination at this time. States that she has some abdominal cramping intermittently. Plan: - K improved this am to 3.8, will give one po K 20 meq and discharge patient - BP improved on 40 lisinopril and 5 mg of amlodipine, will continue same dose in discharge medications DVT ppx SC heprin Subjective Subjective: Patient seen and examined. Doing well. No abdominal pain, had 2 bowel movements this morning. Will be discharged home today, tolerating diet well. Review of Systems Constitutional: Reports: see HPI. Objective Last 24 Hrs of Vital Signs/I&O Vital Signs Date Time Temp Pulse Resp B/P Pulse O2 O2 Flow FiO2 Ox Delivery Rate 02/25 1019 68 132/84 02/25 1017 68 132/84 02/25 0714 98.1 68 20 132/84 95 Room Air 02/24 2352 98.2 84 18 148/70 93 Room Air 02/24 1621 97.9 82 19 132/86 94 02/24 1057 78 154/82 02/24 1056 78 154/82 Intake & Output 02/25 1600 02/25 0800 02/25 0000 Intake Total 500 100 Output Total 550 500 Balance -50 -400 Intake, Oral 500 100 Number 2 Bowel Movements Output, Urine 550 500 Physical Exam General Appearance: well developed/nourished, no apparent distress, alert, awake Head: atraumatic, normal appearance Neck: normal inspection, supple Respiratory: normal breath sounds, chest non-tender, no respiratory distress Abdomen: normal bowel sounds, soft, non-tender Extremities: normal inspection, normal capillary refill, no edema Current Medications: Current Medications Sig/Cesar Start time Last Medication Dose Route Stop Time Status Admin Amlodipine Besylate 5 MG DAILY 02/23 1000 AC 02/25 PO 1017 Atorvastatin Calcium 20 MG 1700 02/24 1700 AC 02/24 PO 1714 Heparin Sodium 5,000 UNIT Q8 02/20 2200 AC 02/24 (Porcine) SC 0618 Lisinopril 40 MG DAILY 02/21 1000 AC 02/25 PO 1019 Morphine Sulfate 2 MG Q2-3 HRS NEEDED.. 02/20 1630 AC 02/21 IV 0718 Morphine Sulfate 4 MG Q2-3 HRS NEEDED.. 02/20 1630 AC IV Ondansetron HCl 4 MG Q6P PRN 02/20 1630 AC IV Pantoprazole Sodium 40 MG DAILY 02/21 1000 AC 02/25 IV 1020 Phenol 2 SPRAY Q2P PRN 02/20 1630 AC EXT Potassium Chloride 40 MEQ ONCE ONE 02/25 0915 DC 02/25 PO 02/25 0916 1011 Results Last 24 Hrs Lab/Ye Results: Laboratory Tests 02/26/16 0650: Anion Gap 12, Estimated GFR > 60, BUN/Creatinine Ratio 22.5, CBC w Diff NO MAN DIFF REQ, RBC 3.63 L, MCV 91.9, MCH 31.1 H, RDW 14.3, MPV 6.9 L, Gran % 73.5, Lymphocytes % 14.8 L, Monocytes % 9.4 H, Eosinophils % 1.9, Basophils % 0.4, Absolute Granulocytes 8.3 H, Absolute Lymphocytes 1.7, Absolute Monocytes 1.1 H, Absolute Eosinophils 0.2, Absolute Basophils 0, PUBS MCHC 33.9 PRAFUL LEE,LOUISE 02/26/16 1144: Attending MD Review Statement Attending Sign Off Attending Cosign Statement: I have: examined this patient, reviewed aval EMR data, discussd w/resident/PA/ SPRINKLING SYSTEM INSTALLER, discussed mgmt plan w/pt, agreed w/resident/PA/SPRINKLING SYSTEM INSTALLER, amended to note. Other Findings: Patient seen and examined, overall feeling much better. That has been advance to regular which she has been tolerating. Blood pressure is stable. Please repeat potassium. Continue current antihypertensive regimen. She is passing flatness and had a bowel movement. On exam her abdomen is soft, nontender and bowel sounds are positive. From medical standpoint patient is stable for discharge home today.
== END 2016-02-26 13:12 | DRG 331 ==
LOC: ERH 09:51 → ENPENDDIS 12:21 → 2NB 12:21 → ERHI 12:21 → 2NB 20:28
PROVIDERS: Emergency Medicine; Physician Assistant; Physician Assistant Surgical; ADMIT Surgery
PROC: 0DB80ZZ Excision of Small Intestine, Open Approach (ICD-10-PCS; principal; 2016-02-21)
PROC: 0DN80ZZ Release Small Intestine, Open Approach (ICD-10-PCS; principal; 2016-02-21)
DX: K56.5 Intestinal adhesions [bands] with obstruction (postinfection) (principal); I10 Essential (primary) hypertension; E87.6 Hypokalemia; E78.5 Hyperlipidemia, unspecified; Z87.891 Personal history of nicotine dependence
CPT/HCPCS: 2NBP; 36415; 74020; 74177; 82436; 87086; 88307; 93005; 93010; 93306; 96361; 96365; 96375; J1644; J2405; J7042; S5012